=== PATIENT | female | born 1940 | race Caucasian/White ===

== ENCOUNTER 2019-12-26 14:10 | Inpatient (IN) | payer BC, MEDICARE, OTHER ==
[~2019-12-26] VITALS: Ht 165.1 cm; Wt 58.9 kg
[~2019-12-26 14:10] MED LIST: CARI350T PO; CLOP75TA35 PO; ESTR0.3T10 PO; LIDO700A5 TOP; LISI-222 PO; LOP25T PO; METH500T PO; ONDA4TAB6 PO
[2019-12-26 14:44] LABS: BASOPHILS # (AUTO) 0.1 X10'3 (0-0.2); BASOPHILS % (AUTO) 1.2 % (0-1); EOSINOPHILS # (AUTO) 0.1 X10'3 (0-0.9); EOSINOPHILS % (AUTO) 1.5 % (0-6); HEMATOCRIT 47.3 % (35.0-45.0); HEMOGLOBIN 15.8 g/dl (12.0-16.0); LYMPHOCYTES # (AUTO) 1.6 X10'3 (1.1-4.8); LYMPHOCYTES % (AUTO) 28.2 % (21-51); MEAN CORPUSCULAR HEMOGLOBIN 28.2 PG (27.0-31.0); MEAN CORPUSCULAR HGB CONC 33.4 g/dL (33.0-36.5); MEAN CORPUSCULAR VOLUME 84.2 FL (78-98); MEAN PLATELET VOLUME 8.9 FL (7.4-10.4); MONOCYTES # (AUTO) 0.5 X10'3 (0-0.9); MONOCYTES % (AUTO) 7.9 % (2-12); NEUTROPHILS # (AUTO) 3.5 X10'3 (1.8-7.7); NEUTROPHILS % (AUTO) 61.2 % (42-75); PLATELET COUNT 227 X10'3 (140-440); RED BLOOD COUNT 5.62 X10'6 (4.20-5.60); WHITE BLOOD COUNT 5.8 X10'3 (4.5-11.0)
[2019-12-26 15:08] LABS: ALANINE AMINOTRANSFERASE 11 U/L (12-78); ALBUMIN 3.8 G/DL (3.4-5.0); ALBUMIN/GLOBULIN RATIO 1.1 (1.1-1.5); ALKALINE PHOSPHATASE 111 IU/L (46-116); ANION GAP 6 (8-16); ASPARTATE AMINO TRANSFERASE 19 U/L (10-37); BILIRUBIN,TOTAL 0.6 MG/DL (0.1-1.0); BLOOD UREA NITROGEN 13 MG/DL (7-18); BUN/CREATININE RATIO 12.7 (6.6-38.0); CALCIUM 9.7 MG/DL (8.5-10.1); CHLORIDE 104 MMOL/L (99-107); CREATININE 1.02 MG/DL (0.40-0.90); GLUCOSE 96 MG/DL (70-104); SODIUM 140 MMOL/L (135-145); TOTAL CARBON DIOXIDE 29.8 MMOL/L (24-32); TOTAL PROTEIN 7.3 G/DL (6.4-8.2); eGFR 52 ML/MIN
[2019-12-26 15:11] LABS: ETHANOL < 0.010 GM/DL (0.0-0.010)
[2019-12-26 16:01] LABS: CLARITY,URINE SLIGHTLY CLOUDY (Clear); COLOR,URINE YELLOW (Yellow); GLUCOSE, URINE NEGATIVE (Neg); KETONES,URINE TRACE mg/dl (Neg); LEUKOCYTE ESTERASE ,URINE MODERATE (Neg); NITRITES, URINE POSITIVE (Neg); OCCULT BLOOD,URINE TRACE-INTACT (Neg); PROTEIN,URINE NEGATIVE (Neg); UROBILINOGEN,URINE 0.2 E.U/dL (0.2-1.0)
[2019-12-26 16:08] LABS: UA COLLECTION TYPE CLN CATCH MIDSTREAM
[2019-12-26 16:09] LABS: RBC,URINE 0-2 /HPF (0-2)
[2019-12-26 16:10] LABS: BACTERIA,URINE 1+ /HPF (Neg); MUCUS STRANDS FEW /LPF (Neg); SQUAMOUS EPITHELIAL CELL,UR MANY /LPF (FEW)
[2019-12-26 16:14] LABS: URINE AMPHETAMINE SCREEN NEGATIVE (Neg); URINE BARBITUATE SCREEN NEGATIVE (Neg); URINE BENZODIAZEPINES SCREEN NEGATIVE (Neg); URINE CANNABINOID SCREEN NEGATIVE (Neg); URINE COCAINE SCREEN NEGATIVE (Neg); URINE METHADONE SCREEN NEGATIVE (Neg); URINE OPIATE SCREEN NEGATIVE (Neg); URINE PHENCYCLIDINE SCREEN NEGATIVE (Neg)
--- NOTE | 2019-12-26 16:42 | NUR ---
Patient is currently sitting up in bed reading a book. RR are even and unlabored. No distress observed at this time. Patient was concerned about her purse belongings. Pt was reassured that her purse was in a safe place. Will continue to monitor.
[2019-12-26] MEDS ORDERED: NO HOME MEDS (17:13)
[2019-12-26] MEDS: nitrofuran/nitrofuran macrocrysal 100 MG capsule PO SCH ×2 (17:38→20:00)
--- NOTE | 2019-12-26 17:47 | NUR ---
Patient is standing by the bed to make her bed by folding blankets. Pt has a pleasnt behavior and denies any distress or symptoms. Respirations are even and unlabored. Will continue to monitor.
--- NOTE | 2019-12-26 19:15 | NUR ---
Pt is standing up at the nurses station visibly upset and raising her voice. "I shouldn't be here ! I can leave whenever I want. My is a copper miner!" Hand Sewer attempts to reorient pt, reminds her that she was brought in because her family called to have a welfare check on her and she was found at home unable to care for herself. Pt denies this and states people are making this up. Pt begins getting loud and tries to leave. Staff attempts to calm pt and try to get her to lay down. Pt refuses and keeps standing at the nursing station repeating herself.
--- NOTE | 2019-12-26 19:20 | NUR ---
Staff attempts to deescalate pt, offering her medication for anxiety which she refuses. Pt offered dinner tray, which she refuses. Pt keeps saying "I can leave when I want! you won't even give me my clothing!" Staff attempts to reorient pt multiple times with no success.
[2019-12-26] MEDS ORDERED: LORazepam 2 mg/ml vial IM ONE (19:25)
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
--- NOTE | 2019-12-26 20:15 | NUR ---
Pt trying to sit up in bed wit restraints on, still asking for scissors and saying, "I need to get up and walk out of here." Staff tried to comfort pt, get her to lay back and rest.
[2019-12-26] MEDS ORDERED: haloperidol lactate 5mg/ml inj IM ONE (20:25)
--- NOTE | 2019-12-26 20:25 | NUR ---
Face to face completed by Dr. Gray. Pt still trying to get up, Haldol 5mg IM ordered.
--- NOTE | 2019-12-26 20:33 | NUR ---
5 mg Haldol IM given with good effect. Pt began to rest and close her eyes.
--- NOTE | 2019-12-26 20:54 | NUR ---
RESTRAINTS REMOVED X4. PT RESTING ON BACK RR 16, 02 96%. VITALS WNL
--- NOTE | 2019-12-26 21:42 | NUR ---
Pt sleeping on her back RR 16, even, unlabored
--- NOTE | 2019-12-26 23:00 | NUR ---
Pt is sleeping soundly RR 14, no signs or symptoms of distress at this time
--- NOTE | 2019-12-27 00:54 | NUR ---
Pt remains asleep on her back, RR 16
--- NOTE | 2019-12-27 01:59 | NUR ---
Pt sleeping on back. Respirations unlabored. NAD
--- NOTE | 2019-12-27 03:51 | NUR ---
Pt still sleepinging soundly RR 14
--- NOTE | 2019-12-27 07:01 | NUR ---
Note xavier in ED - 12/27/19 at 1247 by KAM Assumed care of pt. Pt is asleep on her right side in no apparent distress. Respirations are even and unlabored.
--- NOTE | 2019-12-27 07:07 | NUR ---
Assumed care of pt. Pt is asleep on her back side in no apparent distress. Respirations are even and unlabored.
[2019-12-27] MEDS: nitrofuran/nitrofuran macrocrysal 100 MG capsule PO SCH ×4 (08:28→20:00)
--- NOTE | 2019-12-27 09:03 | NUR ---
Eduardo park in ED - 12/27/19 at 1247 by KAM Pt drank her ensure and took all meds as prescribed. She is cooperative and pleasant.
--- NOTE | 2019-12-27 09:07 | NUR ---
Pt up and eating breakfast. Took all meds aas prescribed. States she got a good nights sleep
--- NOTE | 2019-12-27 10:08 | NUR ---
Pt is with Gillian from . Pt taken off of mental health hold d/t symptoms of possible dementia.
--- NOTE | 2019-12-27 11:04 | NUR ---
Pt is asleep on her left side in no apparent distress. Respirations are even and unlabored.
--- NOTE | 2019-12-27 12:40 | NUR ---
Pt continues to sleep on right side.
--- NOTE | 2019-12-27 14:16 | NUR ---
Pt up and talking to this RN. Pt reoriented to place and time.
--- NOTE | 2019-12-27 14:57 | NUR ---
Pt sitting up in bed coloring
--- NOTE | 2019-12-27 15:59 | NUR ---
Stevevadim called from [place] stating she is pts adopted daughter. Says Pt , Severiano Porter is in the hospital here at [facility] for his hip. She says German is Pts grades 6 through 8 teacher. Pts daughter Joaquina lives in [place] and her son Ras is somewhere in [place]. Her sister Janie lives here in [place]. Edin does not have numbers for any of these people.
--- NOTE | 2019-12-27 17:22 | NUR ---
Pt sitting up in bed looking at a book.
--- NOTE | 2019-12-27 19:12 | NUR ---
The patient has been resting on her bed. She was pleasant when approached. She ate very little of her dinner and stated that she did not have much appetite. She did know how old she was. When asked the what the year was she stated, "I know its in the low 1999's. She knew she was in a hospital but she did not know why. When asked where she is living she stated, "Good question. My home is in [place], [place]" She denies phyiscal pain or other complaints.
--- NOTE | 2019-12-27 19:17 | NUR ---
Patient's grand daughter: Eir Abbott [phone]
--- NOTE | 2019-12-27 20:42 | NUR ---
The patient repeatedly refused to take her antibiotic.
--- NOTE | 2019-12-27 20:50 | NUR ---
The patient appears to be resting quietly on her bed.
--- NOTE | 2019-12-27 22:29 | NUR ---
The patient appears to be sleeping
--- NOTE | 2019-12-27 23:41 | NUR ---
The patient appears to be sleeping
--- NOTE | 2019-12-28 05:24 | NUR ---
The patient appeared to have slept well during the night. Was up a couple of times to use the restroom but then went right back to bed.
[2019-12-28] MEDS: nitrofuran/nitrofuran macrocrysal 100 MG capsule PO SCH ×2 (07:43→19:31)
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
--- NOTE | 2019-12-28 09:48 | NUR ---
BETHANY WELSH'S PHONE NUMBER IS [phone]
--- NOTE | 2019-12-28 09:56 | NUR ---
GEORGE LOCKE'S PHONE NUMBER IS [phone].
[2019-12-28] MEDS ORDERED: diphenhydrAMINE 50 mg/ml inj IM ONE (10:15)
[2019-12-28] MEDS ORDERED: LORazepam 2 mg/ml vial IM ONE ×2 (10:15→17:00)
--- NOTE | 2019-12-28 10:30 | NUR ---
pt agitated,swearing attempting to push past nursing staff to leave contacted er doc order taken for 1 mg ativan/25 mg benadryl im given right hip
--- NOTE | 2019-12-28 10:30 | NUR ---
pt agitated after talking to son on phone,insisting on leaving,attempting to push past nursing staff at exits, unable to re-orient or redirect,insisting kids are in the car outside. Security called repeatedly ER doc contacted, orders taken for 1 mg ativan,25 mg benadryl IM,given with fair relief .
--- NOTE | 2019-12-28 13:37 | NUR ---
No pt Ombudsmen on site currently, per EDID Kirill request to get 3rd constitution party oversight about getting pt's down from Ortho for a visit. Per Social Onel Cobian, the current process would be for the respective CRNs to work out implementation. However, she shared her view based on earlier interaction with today indicated he is not a good candidate for transporation @ this time d/t pain from hip surgery just when coughing.
[2019-12-28] MEDS ORDERED: ziprasidone 20mg capsule PO ONE (14:45)
--- NOTE | 2019-12-28 15:00 | NUR ---
pt cont agitated attempting to leave,x1 order obtained for 20 mg geodon po given,with brief calm period1-2 hours
--- NOTE | 2019-12-28 17:00 | NUR ---
DR LYNCH TO BEDSIDE TO EVALUATE PT, RECIEVED VERBAL ORDER FOR 2 MG ATIVAN IM ONCE NOW. DUE TO PT ANXIETY, AGITATION AND CONTINUES WANDERING AND GETTING LOST IN UNIT WELL CONFUSED TO WHERE SHE IS.
--- NOTE | 2019-12-28 17:15 | NUR ---
pt swearing roaming the unit,attempting to leave,security here repeatedly,pt medicated with 2 mg ativan im in right deltoid calming slowly after 45 minutes pt requiring 1:1 supervision majority of day
[2019-12-28] MEDS: ziprasidone 20mg capsule PO SCH (19:31)
--- NOTE | 2019-12-28 20:00 | NUR ---
The patient is resting on her bed awake but quiet. Encouraged po fluids. She took her evening medications.
--- NOTE | 2019-12-28 21:42 | NUR ---
The patient appears to be sleeping comfortably.
--- NOTE | 2019-12-28 23:11 | NUR ---
The patient appears to be sleeping
--- NOTE | 2019-12-29 01:15 | NUR ---
The patient appears to be sleeping
--- NOTE | 2019-12-29 03:05 | NUR ---
The patient up to the bathroom with the assistance of staff
--- NOTE | 2019-12-29 05:26 | NUR ---
The patient appears to be sleeping
--- NOTE | 2019-12-29 06:30 | NUR ---
pt is sleeping. report recieved.
--- NOTE | 2019-12-29 07:30 | NUR ---
pt is sleeping. no concerns at this time
[2019-12-29] MEDS: nitrofuran/nitrofuran macrocrysal 100 MG capsule PO SCH ×2 (09:20→19:28)
[2019-12-29] MEDS: ziprasidone 20mg capsule PO SCH ×2 (09:21→19:28)
--- NOTE | 2019-12-29 11:30 | NUR ---
pt is remaking her bed and changing the sheets
--- NOTE | 2019-12-29 13:00 | NUR ---
pt is resting in room
--- NOTE | 2019-12-29 15:06 | NUR ---
pt is resting in bed visiting with neighbor
--- NOTE | 2019-12-29 16:00 | NUR ---
pt spoke with son in law
--- NOTE | 2019-12-29 17:00 | NUR ---
pt resting in bed.
--- NOTE | 2019-12-29 20:01 | NUR ---
The patient is currently resting on her bed. She is very confused. She is oriented only to herself. She at times attempts to walk off the unit but is accepting redirection. She did take HS medications with applesauce
--- NOTE | 2019-12-29 21:37 | NUR ---
The patient appears to be asleep at this time.
--- NOTE | 2019-12-30 01:42 | NUR ---
The patient appears to be sleeping
--- NOTE | 2019-12-30 04:54 | NUR ---
The patient appears to be sleeping
--- NOTE | 2019-12-30 07:30 | NUR ---
assumed care from MIRELLA Cowart. pt laying in bed quietly.
--- NOTE | 2019-12-30 08:29 | NUR ---
pt standing by her bed folding her bedsheets on the bed. pt comes up to nursing station and asked if she needed to fold the sheets any certain way. RN answered no. breakfast at bedside but pt states she does not want to eat at this time. attempted to give pt her meds and pt stated she'd like to eat a little first.
[2019-12-30] MEDS: nitrofuran/nitrofuran macrocrysal 100 MG capsule PO SCH ×2 (08:46→19:12)
[2019-12-30] MEDS: ziprasidone 20mg capsule PO SCH ×2 (08:46→19:12)
--- NOTE | 2019-12-30 08:47 | NUR ---
pt sitting in chair by her bed eating her breakfast with her tray sitting on her lap. asked pt if she wanted to use her bedside table and pt stated she was fine. pt took her meds. pt states she takes one pill a day, RN explained she had 2 d/t abx. pt at first wouldn't take second pill and then changed her mind.
--- NOTE | 2019-12-30 10:00 | NUR ---
pt walking around her room and up to bathroom getting cleaned up. pt looking for her purse. first stated she wanted from underware from her purse. underware provided. then pt states she wanted nicknacks and food out of her purse. nursing staff assured her if she was hungry we would get her some food but we are unable to get to her purse at this time.
--- NOTE | 2019-12-30 10:50 | NUR ---
pt resting quietly in bed reading a magazine.
--- NOTE | 2019-12-30 11:20 | NUR ---
SENT PAGE TO [facility] TO VERIFY FUNDS AND IF FUNDS LOOK FOR PLACEMENT
--- NOTE | 2019-12-30 12:29 | NUR ---
LEFT MESSAGE WITH ELIZABETH PT DAUGHTER TO CALL BACK TO GET BANKING INFO TO ATTEMPT TO GET HOUSING CARE FOR PT UNTIL PT SPOUSE IS DISCHARGED FROM SNF, PT SPOUSE JUST WENT TO SNF TODAY AND WILL BE THERE APPROX 7 WEEKS.
[2019-12-30] MEDS ORDERED: LORazepam 1 MG tablet PO ONE ×2 (14:50→22:05)
--- NOTE | 2019-12-30 14:51 | NUR ---
pt continuously roaming around the unit, pleasant, and busy. curious about another pts behavior. up and down from bed to chair and walking around the unit. pleasantly antsy. obtained order for PO Ativan to help settle pt.
--- NOTE | 2019-12-30 15:04 | NUR ---
NURSE ALETHEA BOLDEN FROM [facility] STATES PT SPOUSE JUST ARRIVED YESTERDAY, SHE WILL CONTACT RUFUS VENEGAS WHO IS LISTED ON MR LOCKE CONTACT REGINALDO BUT HIS DAUGHTER AND SISTER IN LAW DOES NOT KNOW RUFUS VENEGAS, ALETHEA WILL TALKE WITH DR LOCKE AND CALL RUFUS VENEGAS AND THEN EITHER SHE WILL CALL ME BACK OR HAVE RUFUS VENEGAS CALL ME BACK., ALETHEA BOLDEN [facility] DIRECT PH# [phone]
[2019-12-30] MEDS ORDERED: diphenhydrAMINE 50 mg/ml inj IM ONE (15:20)
[2019-12-30] MEDS ORDERED: haloperidol lactate 5mg/ml inj IM ONE (15:20)
--- NOTE | 2019-12-30 15:34 | NUR ---
pt getting agitated, walking around, saying she wants to talk to her . order obtained for CONCHITA Garay and Inocencio for pt. security and tech at bedside.
--- NOTE | 2019-12-30 16:05 | NUR ---
tech sitting with pt at bedside to help keep pt in bed and calm sicne pt gets up and walks around the unit bothering other pts. pt is remaining calm at the moment.
--- NOTE | 2019-12-30 16:47 | NUR ---
pt confused and starting to become combative, kicking and biting. security at bedside. soft wrist restraints applied.
--- NOTE | 2019-12-30 18:34 | NUR ---
PT WONDERING AROUND. SPEAKING WITH STAFF, CAN BE REDIRECTED AT TIMES BUT WILL NOT STAY IN ONE PLACE FOR TOO LONG.
--- NOTE | 2019-12-30 20:30 | NUR ---
pt is confused and trying to wonder around aimlessly. she states she has to get to the "two kids" sitter at bedside. pt continues to swing her legs over the side rails.
--- NOTE | 2019-12-30 22:21 | NUR ---
PT WAS AGITATED AND WAS NOT FOLLOWING COMMANDS. SHE CONTINUED TO SWING HER LEGS OVER THE BED RAIL TO LEAVE. DR PAIGE NOTIFIED. 1MG PO ATIVAN ORDERED. SHORTLY AFTER NOTIFYING DR. PAIGE OF PT'S BEHAVIOR, PT FELL ASLEEP.
--- NOTE | 2019-12-30 23:57 | NUR ---
PT SLEEPING AT THIS TIME. SITTER AT BEDSIDE.
--- NOTE | 2019-12-31 05:36 | NUR ---
PT SLEPT WELL. SHE IS SLEEPING IN BED. SITTER AT BEDSIDE.
--- NOTE | 2019-12-31 05:57 | NUR ---
PATIENT REFUSING VITAL SIGNS.
--- NOTE | 2019-12-31 06:26 | NUR ---
RECEIVED REPORT FROM SYEDA BARRERA, PT IS SLEEPING AT THIS TIME, NO S/S OF DISTRESS, DISCOMFORT OR AGITATION, RESPIRATIONS SPONTANEOUS, EVEN AND UNLABORED, PT IN LINE OF SITE OF NURSES STATION, WILL CONTINUE TO MONITOR.
--- NOTE | 2019-12-31 07:03 | NUR ---
DR LYNCH AT BEDSIDE DISCUSSED PT STATUS, RECEIVED VERBAL ORDER TO INCREASE GEODON TO 40MG BID, UPDATED NEW ORDER AND STOPPED PREVIOUS ORDER.
--- NOTE | 2019-12-31 08:44 | NUR ---
PT IS SLEEPING, RESPIRATIONS SPONTANEOUS, EVEN AND UNLABORED, NO S/S OF DISTRESS, DISCOMFORT OR AGITATION, PT IN LINE OF SITE OF NURSES STATION, WILL CONTINUE TO MONITOR
--- NOTE | 2019-12-31 10:06 | NUR ---
TWO APS WORKERS AT BEDSIDE NOW
--- NOTE | 2019-12-31 10:18 | NUR ---
NATHALIA FITZGERALD AND ELYSSA HEAD WITH APS FINISHED INTERVIEWING PT, GAVE SOME BRIEF HISTORY AND INFORMATION FOR THEM TO FOLLOW UP WITH WHEN REVIEWING PT CASE.
[2019-12-31] MEDS: ziprasidone 20mg capsule PO SCH ×2 (10:24→20:00)
[2019-12-31] MEDS: nitrofuran/nitrofuran macrocrysal 100 MG capsule PO SCH (10:24)
--- NOTE | 2019-12-31 10:27 | NUR ---
MEDICATED PT WITH ABX AND GEODON PER ORDERS, PT SITTING UP EATING BREAKFAST, JESSE ED SITTER ASSISTING PT WITH EATING
--- NOTE | 2019-12-31 11:04 | NUR ---
PT AMBULATED TO BATHROOM WITH STANDBY ASSIST BY JESSE, PT IS NOW BACK IN BED FOLDING HER BLANKETS ON HER BED, PT STANDS AND SITS INTERMITTENTLY WHILE FOLDING BLANKETS
--- NOTE | 2019-12-31 12:40 | NUR ---
PT IS SLEEPING, RESPIRATIONS SPONTANEOUS, EVEN AND UNLABORED, NO S/S OF DISTRESS DISCOMFORT OR AGITATION, PT IN LINE OF SITE OF NURSES STATION, WILL CONTINUE TO MONITOR
--- NOTE | 2019-12-31 14:59 | NUR ---
PT WALKING TOWARDS BACK OF ROOM WANTING TO HANG UP HER SWEATSHIRT IN THE CLOSET. PT REDIRECTED TO HER BED GIVEN A WARM BLANKET AND PILLOW FOR A NAP. PT LYING IN BED QUIETLY NOW.
--- NOTE | 2019-12-31 15:01 | NUR ---
PT IN BED RESTING
--- NOTE | 2019-12-31 17:09 | NUR ---
LEONEL UP TO THE BATHROOM. STEADY GAIT.
--- NOTE | 2019-12-31 18:57 | NUR ---
Patilent is sitting up in bed eating her dinner. Patient is oriented to person. Dementia is reported present. Patient is not on a mental health hold at this time. Patient reported to have had some agitatation earlier. Patient presents as calm at this time.
--- NOTE | 2019-12-31 20:45 | NUR ---
Patient is resting in a mid fowlers position in bed. She is awake with her hand over her face. Patient has no complaints at this time.
--- NOTE | 2019-12-31 21:30 | NUR ---
Patient is sleeping quietly, low fowlers position.
--- NOTE | 2019-12-31 22:15 | NUR ---
Eduardo park in [facility] - 01/01/20 at 0545 by SONALI Patient is sleeping quietly.
--- NOTE | 2019-12-31 23:22 | NUR ---
Patient is sleeping in a low fowlers position. She self repositions.
--- NOTE | 2020-01-01 01:16 | NUR ---
Patient awakens and ambulates to the nursing station. Patient is disoriented. Patient is reoriented to person, place, and time. The patient is reassured that she is safe. Patient is helped back to bed. New blankets given. The patient is amazed it is after one am in the night. Patient returns to sleep.
--- NOTE | 2020-01-01 03:07 | NUR ---
Patient is sleeping quietly on her left side.
--- NOTE | 2020-01-01 04:00 | NUR ---
Patient is sleeping on her right side in bed.
--- NOTE | 2020-01-01 05:38 | NUR ---
Patient sleeping quietly.
--- NOTE | 2020-01-01 05:59 | NUR ---
Patient is up to visit this jingle writer at the nursing station. Patient has some limited understanding that she is confussed. Patient is advised that it is nearly 0600 in the morning. She is surprised. She agrees to return to bed to get some sleep.
[2020-01-01] MEDS: ziprasidone 20mg capsule PO SCH ×2 (09:09→20:12)
--- NOTE | 2020-01-01 09:25 | NUR ---
assumed care of pt she is supine in bed, eyes closed, regular breathing observed, pt is in eyesite of staff, no agitation observed
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
--- NOTE | 2020-01-01 11:26 | NUR ---
pt is supine in bed, eyes closed, regular breathing observed, no agitation, will cont to monitor
--- NOTE | 2020-01-01 12:29 | NUR ---
pt is supine in bed eyes closed, regular breathing present, calm, no s/s of agitation observed
--- NOTE | 2020-01-01 13:22 | NUR ---
pt is sitting up in bed reading, no s/s of agitation observed
--- NOTE | 2020-01-01 14:23 | NUR ---
pt is up wandering and concerned about her children and her
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
--- NOTE | 2020-01-01 16:24 | NUR ---
PT IS UP AND DOWN OOB TO TALK TO NEIGHBOR, CALM
--- NOTE | 2020-01-01 19:10 | NUR ---
Patient ambulates to neighboring beds attempting to visit with other patients. Patients baseline is confusion. She is oriented to person only. Patient is polite. No hold in place. Dx is dementia. This patient eats her dinner. Patient provided clean scrubs. Patient redirected to bed.
--- NOTE | 2020-01-01 20:30 | NUR ---
Patient is medication compliant. She is sleeping now. Patient self repositions.
--- NOTE | 2020-01-01 22:05 | NUR ---
Patient remains sleeping, she self repositions in bed.
--- NOTE | 2020-01-01 23:33 | NUR ---
Patient is sleeping quietly on her right side.
--- NOTE | 2020-01-02 01:00 | NUR ---
Patient remains sleeping quietly.
--- NOTE | 2020-01-02 03:28 | NUR ---
Patient is sleeping quietly.
--- NOTE | 2020-01-02 04:53 | NUR ---
Patient is sleeping on her left side, no distress noted.
--- NOTE | 2020-01-02 07:06 | NUR ---
PT SLEEPING QUIETLY.
[2020-01-02] MEDS: ziprasidone 20mg capsule PO SCH ×2 (07:28→19:03)
--- NOTE | 2020-01-02 08:42 | NUR ---
PT SITTING UP AT BEDSIDE EATING BREAKFAST. ATE 50%
--- NOTE | 2020-01-02 09:34 | NUR ---
PT SLEEPING QUIETLY
--- NOTE | 2020-01-02 10:44 | NUR ---
PT AWAKE VISITING NURSES AT THE DESK, AND TO THE BR, PLEASANT BEHAVIOR.
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
--- NOTE | 2020-01-02 18:30 | NUR ---
PT is sitting up in bed or wandering around. Pt is difficult to redirect and does not agree with sitting in her bed.
--- NOTE | 2020-01-02 20:30 | NUR ---
Pt stands next to her bed and folds her blankets repeatedly. She tries to wander, is not easily directed but does go back to sit on her bed
--- NOTE | 2020-01-02 23:09 | NUR ---
Pt was medication compliant with CHUCKIE bass. She is currently sleeping on R side RR WNL
--- NOTE | 2020-01-03 01:00 | NUR ---
Pt asleep on L side, RR WNL
--- NOTE | 2020-01-03 03:00 | NUR ---
Pt got up to use the restroom then returned to bed.
--- NOTE | 2020-01-03 05:44 | NUR ---
Pt is awake and making her bed, she folds her sheets multiple times.
[2020-01-03] MEDS: ziprasidone 20mg capsule PO SCH ×2 (08:05→20:55)
[2020-01-03] MEDS: LORazepam 2 mg/ml vial IM PRN ×2 (09:33→15:00)
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
--- NOTE | 2020-01-03 21:04 | NUR ---
Pt continues to enter other patient's areas. Security at bedside. Staff assisting with redirection.
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
[2020-01-03] MEDS ORDERED: haloperidol lactate 5mg/ml inj IM ONE (21:20)
--- NOTE | 2020-01-03 22:00 | NUR ---
Pt resting quietly, respirations normal, no s/s of distress.
--- NOTE | 2020-01-03 23:00 | NUR ---
Pt resting quietly, respirations normal, no s/s of distress.
--- NOTE | 2020-01-04 | NUR ---
Pt resting quietly, respirations normal, no s/s of distress.
[2020-01-04] MEDS ORDERED: ziprasidone 20mg capsule PO ONE (01:00)
--- NOTE | 2020-01-04 01:00 | NUR ---
Pt resting quietly, respirations normal, no s/s of distress.
--- NOTE | 2020-01-04 02:00 | NUR ---
Pt resting quietly, respirations normal, no s/s of distress.
--- NOTE | 2020-01-04 03:08 | NUR ---
Pt resting quietly, respirations normal, no s/s of distress.
--- NOTE | 2020-01-04 04:00 | NUR ---
Pt resting quietly, respirations normal, no s/s of distress.
--- NOTE | 2020-01-04 05:38 | NUR ---
Pt resting quietly, respirations normal, no s/s of distress.
[2020-01-04] MEDS: ziprasidone 20mg capsule PO SCH ×2 (08:00→19:15)
[2020-01-04] MEDS ORDERED: acetaminophen 325mg tablet PO PRN (17:10)
[2020-01-04] MEDS ORDERED: diphenhydrAMINE 25mg capsule PO PRN (17:10)
[2020-01-04] MEDS ORDERED: morphine 2 MG/ML inj. syringe IV PRN ×2 (17:10)
[2020-01-04] MEDS ORDERED: ondansetron/PF 4mg/2ml inj IV PRN (17:10)
[2020-01-04] MEDS ORDERED: mag hydrox/Alum hydrox/simeth 30ml oral suspension PO PRN (17:10)
--- NOTE | 2020-01-04 19:33 | NUR ---
Patient in room ORTHO 4009. I have received report from Jeniffer VU in the ED overflow and had the opportunity to ask questions and assume patient care. Pt arrived on the unit via wheelchair. All pt belongings were places in the bedside drawers. Pt was able to ambulate from the wheelchair into bed. Pt is on R/A, has no signs of distress. Will continue to monitor.
[2020-01-04 20:20] VITALS: BP 153/70
[2020-01-04 22:00] VITALS: BP 157/65
[2020-01-05 06:00] VITALS: BP 133/68
--- NOTE | 2020-01-05 06:24 | NUR ---
Problems reprioritized. Patient report given, questions answered & plan of care reviewed with Renetta VU.
[2020-01-05] MEDS: ziprasidone 20mg capsule PO SCH ×2 (08:45→19:17)
[2020-01-05 10:00] VITALS: BP 128/57
[2020-01-05 18:00] VITALS: BP 135/74
--- NOTE | 2020-01-05 18:32 | NUR ---
Report to Ivet Cooney RN
--- NOTE | 2020-01-05 18:35 | NUR ---
Patient in room ORTHO 4009. I have received report from LORE VU and had the opportunity to ask questions and assume patient care.
[2020-01-05 22:00] VITALS: BP 103/82
[2020-01-06 05:59] VITALS: BP 148/63
--- NOTE | 2020-01-06 06:27 | NUR ---
Problems reprioritized. Patient report given, questions answered & plan of care reviewed with ZORAIDA VU.
--- NOTE | 2020-01-06 06:32 | NUR ---
Patient in room ORTHO 4009C. I have received report from MIRELLA TRIANA and had the opportunity to ask questions and assume patient care.
[2020-01-06] MEDS: ziprasidone 20mg capsule PO SCH ×2 (08:35→20:34)
[2020-01-06 10:00] VITALS: BP 151/81
[2020-01-06 18:00] VITALS: BP 125/84
--- NOTE | 2020-01-06 18:14 | NUR ---
Problems reprioritized. Patient report given, questions answered & plan of care reviewed with MIRELLA RAMAN.
[2020-01-06 22:00] VITALS: BP 179/79
[2020-01-07 06:00] VITALS: BP 166/100
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
[2020-01-07] MEDS: ziprasidone 20mg capsule PO SCH ×3 (08:00→20:00)
[2020-01-07 10:00] VITALS: BP 92/61
[2020-01-07 18:00] VITALS: BP 97/64
--- NOTE | 2020-01-07 18:40 | NUR ---
Gave report to Kaitlin VU
[2020-01-08] MEDS: ziprasidone 20mg capsule PO SCH ×2 (08:29→19:16)
[2020-01-08 10:12] VITALS: BP 164/72
--- NOTE | 2020-01-08 14:16 | NUR ---
Initial: Pt admit gravely disabled due to advanced dementia. Pt previously in ED on 5150 hold where pt was eating well, averaging 50-75% PO intake with some 100% PO intake on regular diet meeting nutrient needs. Since being admitted pt with 0-25% PO intake on regular diet not meeting nutrient needs. Pt confused and A/O x 1, likely impacting PO intake. LBM 01/01 however per physical assessment unknown when LBM was. Pt with PRN MoM however no documentation of pt receiving it. D/w dietary to send prunes and prune juice with dinner tonight to assist with bowel regularity and hopefully improve PO intake. Will continue to follow closely and monitor need for further nutrition intervention. Recommendations: 1) Continue regular diet 2) Encourage PO intake; monitor need for ONS 3) Routine bowel care 4) Wt per rx Addendum: 01/08/20 at [address] Amended: Links added.
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
[2020-01-08 17:00] VITALS: BP 124/90
--- NOTE | 2020-01-08 18:25 | NUR ---
Patient in room ORTHO 4009. I have received report from Dede VU and had the opportunity to ask questions and assume patient care.
[2020-01-08 22:00] VITALS: BP 99/57
--- NOTE | 2020-01-09 06:17 | NUR ---
Problems reprioritized. Patient report given, questions answered & plan of care reviewed with Luis A VU.
--- NOTE | 2020-01-09 06:34 | NUR ---
Patient in room ORTHO 4009. I have received report from Namita and had the opportunity to ask questions and assume patient care.
[2020-01-09] MEDS: ziprasidone 20mg capsule PO SCH ×2 (07:49→19:08)
[2020-01-09] MEDS: acetaminophen 325mg tablet PO PRN (09:51)
[2020-01-09 10:00] VITALS: BP 151/67
[2020-01-09 17:00] VITALS: BP 165/73
--- NOTE | 2020-01-09 18:22 | NUR ---
Problems reprioritized. Patient report given, questions answered & plan of care reviewed with Carlo.
--- NOTE | 2020-01-09 18:29 | NUR ---
Patient in room ORTHO 4009. I have received report from Luis A VU and had the opportunity to ask questions and assume patient care.
[2020-01-09 20:00] VITALS: BP 134/55
[2020-01-09 22:00] VITALS: BP 134/55
[2020-01-10 06:00] VITALS: BP 151/63
--- NOTE | 2020-01-10 06:16 | NUR ---
Problems reprioritized. Patient report given, questions answered & plan of care reviewed with Gisela VU.
--- NOTE | 2020-01-10 06:23 | NUR ---
Patient in room ORTHO 4009. I have received report from MIRELLA Jefferson and had the opportunity to ask questions and assume patient care.
[2020-01-10] MEDS: ziprasidone 20mg capsule PO SCH ×2 (07:22→19:36)
[2020-01-10 08:07] VITALS: BP 151/63
[2020-01-10 10:05] VITALS: BP 80/55
--- NOTE | 2020-01-10 13:55 | NUR ---
Problems reprioritized. Patient report given, questions answered & plan of care reviewed with MIRELLA Spencer and MIRELLA العراقي.
--- NOTE | 2020-01-10 14:02 | NUR ---
Rcvd report from Gisela VU
[2020-01-10] MEDS ORDERED: LORazepam 2 mg/ml vial IM ONE (16:20)
--- NOTE | 2020-01-10 16:21 | NUR ---
sent a page to hospitalist about pt being agitated and nursing staff was requesting something to help cease her agitation, ordered a one time IM dose of ativan, continue to educate and monitor pt
[2020-01-10 18:00] VITALS: BP 175/87
--- NOTE | 2020-01-10 18:19 | NUR ---
Patient in room ORTHO 4009. I have received report from cam العراقي and had the opportunity to ask questions and assume patient care.
[2020-01-10 20:00] VITALS: BP 158/71
[2020-01-10 21:48] VITALS: BP 158/71
[2020-01-11 06:00] VITALS: BP 144/69
--- NOTE | 2020-01-11 06:22 | NUR ---
Problems reprioritized. Patient report given, questions answered & plan of care reviewed with cam Jackson.
[2020-01-11] MEDS: ziprasidone 20mg capsule PO SCH ×2 (08:59→19:43)
[2020-01-11 10:00] VITALS: BP 148/68
--- NOTE | 2020-01-11 16:03 | NUR ---
Reassessment: Pt PO 25-50% avg regular diet partially meeting needs. LBM 01/05 and ALOC AOx1 w/ dementia likely effecting PO. Ensure Enlive TIDWM added for additional protein needs w/ COPD Exacerbation per MD note. NANCIE d/w RN regarding MoM PRN if pt truly constipated since goes to bathroom independently per RN. Will continue to monitor. Recommendations: 1) Continue regular diet 2) Encourage PO intake; ensure enlive TIDWM 3) Routine bowel care 4) Wt per rx Addendum: 01/11/20 at [address] Amended: Links added.
[2020-01-11 18:00] VITALS: BP 150/60
--- NOTE | 2020-01-11 18:19 | NUR ---
Report to Laura VU
--- NOTE | 2020-01-11 18:24 | NUR ---
Patient in room ORTHO 4009. I have received report from cam Jackson and had the opportunity to ask questions and assume patient care.
[2020-01-11] MEDS: magnesium hydroxide 30ml (MOM) UD suspension PO PRN (19:43)
[2020-01-11 20:00] VITALS: BP 158/76
[2020-01-11 22:00] VITALS: BP 158/76
--- NOTE | 2020-01-12 06:21 | NUR ---
Problems reprioritized. Patient report given, questions answered & plan of care reviewed with cam Pedersen.
[2020-01-12 07:06] VITALS: BP 140/55
[2020-01-12] MEDS: ziprasidone 20mg capsule PO SCH ×2 (07:25→19:21)
[2020-01-12 10:00] VITALS: BP_SYST 125; BP_SYST 146; BP_DIAS 58; BP_DIAS 69
--- NOTE | 2020-01-12 10:23 | NUR ---
Problems reprioritized. Patient report given, questions answered & plan of care reviewed with Bonnie VU.
[2020-01-12] MEDS: lactose-reduced food (Ensure Enlive) - 237ml bottle PO SCH ×2 (13:10→18:00)
[2020-01-12 18:00] VITALS: BP 161/79
[2020-01-12] MEDS: magnesium hydroxide 30ml (MOM) UD suspension PO PRN (19:21)
[2020-01-12 20:00] VITALS: BP 160/67
[2020-01-12 22:00] VITALS: BP 160/67
--- NOTE | 2020-01-13 06:24 | NUR ---
Patient in room ORTHO 4009. I have received report from Setnhil VU and had the opportunity to ask questions and assume patient care.
--- NOTE | 2020-01-13 06:28 | NUR ---
Problems reprioritized. Patient report given, questions answered & plan of care reviewed with MIRELLA CRAWFORD.
--- NOTE | 2020-01-13 06:31 | NUR ---
Refused 0600 vitals.
[2020-01-13] MEDS: ziprasidone 20mg capsule PO SCH ×2 (07:24→19:42)
[2020-01-13] MEDS: lactose-reduced food (Ensure Enlive) - 237ml bottle PO SCH ×3 (08:00→18:04)
[2020-01-13 09:30] VITALS: BP 135/65
[2020-01-13 10:00] VITALS: BP 112/49
[2020-01-13 15:45] VITALS: BP_SYST 114; BP_SYST 125; BP_SYST 129; BP_DIAS 70; BP_DIAS 75; BP_DIAS 76
[2020-01-13 18:00] VITALS: BP 96/77
--- NOTE | 2020-01-13 18:00 | NUR ---
Patient in room ORTHO 4009. I have received report from MIRELLA Gunn and had the opportunity to ask questions and assume patient care.
--- NOTE | 2020-01-13 18:20 | NUR ---
Problems reprioritized. Patient report given, questions answered & plan of care reviewed with
[2020-01-14 06:00] VITALS: BP 97/50
--- NOTE | 2020-01-14 06:00 | NUR ---
Problems reprioritized. Patient report given, questions answered & plan of care reviewed with MIRELLA Gunn.
--- NOTE | 2020-01-14 06:09 | NUR ---
Patient in room ORTHO 4009. I have received report from [facility] and had the opportunity to ask questions and assume patient care.
[2020-01-14] MEDS: ziprasidone 20mg capsule PO SCH ×2 (07:33→19:19)
[2020-01-14] MEDS: lactose-reduced food (Ensure Enlive) - 237ml bottle PO SCH ×3 (08:13→18:54)
[2020-01-14 10:00] VITALS: BP 98/78
--- NOTE | 2020-01-14 12:20 | NUR ---
Reassessment: Pt PO meals and ONS continue to fluctuate likely secondary to dementia DX. Pt PO ensures 0-75% w/ a refusal and PO meals decreased to 50% avg from mostly 75% avg prior meals. Overall pt still likely meeting needs given wt. RN reports pt needs encouragement at meal times but can self feed and does not require feeder. Per MD note; no acute medical issues at this time. LBM 01/10. Will continue to monitor. Recommendations: 1) Continue regular diet 2) Encourage PO intake; ensure enlive TIDWM 3) Routine bowel care 4) Wt per rx Addendum: 01/14/20 at [address] Amended: Links added.
[2020-01-14 14:05] VITALS: BP_SYST 120; BP_SYST 125; BP_SYST 126; BP_DIAS 55; BP_DIAS 60
[2020-01-14] MEDS: acetaminophen 325mg tablet PO PRN (16:35)
[2020-01-14 18:00] VITALS: BP 190/94
--- NOTE | 2020-01-14 18:26 | NUR ---
Problems reprioritized. Patient report given, questions answered & plan of care reviewed with Marino.
--- NOTE | 2020-01-14 18:30 | NUR ---
Patient in room ORTHO 4009. I have received report from Luis A VU and had the opportunity to ask questions and assume patient care.
[2020-01-14 19:00] VITALS: BP 98/62
[2020-01-14 22:00] VITALS: BP 104/66
--- NOTE | 2020-01-15 06:00 | NUR ---
Patient refused vitals. Addendum: 01/15/20 at 0643 by Alice Cullen RN Amended: Links added.
--- NOTE | 2020-01-15 06:17 | NUR ---
Problems reprioritized. Patient report given, questions answered & plan of care reviewed with Alice VU.
[2020-01-15] MEDS: lactose-reduced food (Ensure Enlive) - 237ml bottle PO SCH ×3 (08:07→18:00)
[2020-01-15] MEDS: ziprasidone 20mg capsule PO SCH ×2 (08:09→19:20)
[2020-01-15 09:41] VITALS: BP 135/63
[2020-01-15] MEDS: acetaminophen 325mg tablet PO PRN (12:51)
[2020-01-15 18:00] VITALS: BP 167/76
--- NOTE | 2020-01-15 18:22 | NUR ---
Problems reprioritized. Patient report given, questions answered & plan of care reviewed with Terri VU.
--- NOTE | 2020-01-15 18:27 | NUR ---
Patient in room ORTHO 4009. I have received report from Alice VU and had the opportunity to ask questions and assume patient care.
[2020-01-16 06:00] VITALS: BP 147/67
--- NOTE | 2020-01-16 06:16 | NUR ---
Problems reprioritized. Patient report given, questions answered & plan of care reviewed with Alice VU.
[2020-01-16] MEDS: ziprasidone 20mg capsule PO SCH ×2 (07:58→19:43)
[2020-01-16] MEDS: lactose-reduced food (Ensure Enlive) - 237ml bottle PO SCH ×3 (08:03→18:00)
[2020-01-16 09:33] VITALS: BP 136/60
[2020-01-16 18:00] VITALS: BP 133/66
--- NOTE | 2020-01-16 18:11 | NUR ---
Problems reprioritized. Patient report given, questions answered & plan of care reviewed with Terri VU.
--- NOTE | 2020-01-16 18:14 | NUR ---
Patient in room ORTHO 4009. I have received report from Alice VU and had the opportunity to ask questions and assume patient care.
[2020-01-16 22:00] VITALS: BP 145/69
--- NOTE | 2020-01-17 06:12 | NUR ---
Problems reprioritized. Patient report given, questions answered & plan of care reviewed with Kathy VU.
--- NOTE | 2020-01-17 06:45 | NUR ---
Received report from Terri VU
[2020-01-17] MEDS: ziprasidone 20mg capsule PO SCH ×2 (08:08→19:12)
[2020-01-17] MEDS: lactose-reduced food (Ensure Enlive) - 237ml bottle PO SCH ×3 (08:27→18:00)
[2020-01-17 08:41] LABS: BASOPHILS # (AUTO) 0.1 X10'3 (0-0.2); BASOPHILS % (AUTO) 1.4 % (0-1); EOSINOPHILS # (AUTO) 0.2 X10'3 (0-0.9); EOSINOPHILS % (AUTO) 3.6 % (0-6); HEMATOCRIT 47.7 % (35.0-45.0); HEMOGLOBIN 15.7 g/dl (12.0-16.0); LYMPHOCYTES # (AUTO) 1.7 X10'3 (1.1-4.8); LYMPHOCYTES % (AUTO) 30.4 % (21-51); MEAN CORPUSCULAR HEMOGLOBIN 28.3 PG (27.0-31.0); MEAN CORPUSCULAR HGB CONC 32.9 g/dL (33.0-36.5); MEAN CORPUSCULAR VOLUME 86.2 FL (78-98); MEAN PLATELET VOLUME 9.6 FL (7.4-10.4); MONOCYTES # (AUTO) 0.6 X10'3 (0-0.9); MONOCYTES % (AUTO) 9.8 % (2-12); NEUTROPHILS # (AUTO) 3.2 X10'3 (1.8-7.7); NEUTROPHILS % (AUTO) 54.8 % (42-75); PLATELET COUNT 234 X10'3 (140-440); RED BLOOD COUNT 5.54 X10'6 (4.20-5.60); RED CELL DISTRIBUTION WIDTH 15.9 % (11.5-14.5); WHITE BLOOD COUNT 5.8 X10'3 (4.5-11.0)
[2020-01-17 08:54] LABS: ALANINE AMINOTRANSFERASE 11 U/L (12-78); ALBUMIN 3.8 G/DL (3.4-5.0); ALBUMIN/GLOBULIN RATIO 1.2 (1.1-1.5); ALKALINE PHOSPHATASE 78 IU/L (46-116); ANION GAP 7 (8-16); ASPARTATE AMINO TRANSFERASE 19 U/L (10-37); BILIRUBIN,TOTAL 0.5 MG/DL (0.1-1.0); BLOOD UREA NITROGEN 17 MG/DL (7-18); BUN/CREATININE RATIO 15.2 (6.6-38.0); CHLORIDE 107 MMOL/L (99-107); CREATININE 1.12 MG/DL (0.40-0.90); GLUCOSE 101 MG/DL (70-104); POTASSIUM 3.9 MMOL/L (3.5-5.1); SODIUM 141 MMOL/L (135-145); TOTAL CARBON DIOXIDE 26.7 MMOL/L (24-32); TOTAL PROTEIN 7.1 G/DL (6.4-8.2); eGFR 47 ML/MIN
[2020-01-17 10:00] VITALS: BP 138/64
[2020-01-17 18:00] VITALS: BP 145/83
[2020-01-17 22:00] VITALS: BP 137/57
[2020-01-18 06:00] VITALS: BP 142/68
--- NOTE | 2020-01-18 06:22 | NUR ---
REPORT GIVEN TO MIRELLA TORREZ.
[2020-01-18] MEDS: ziprasidone 20mg capsule PO SCH ×2 (08:00→20:20)
[2020-01-18] MEDS: lactose-reduced food (Ensure Enlive) - 237ml bottle PO SCH ×3 (08:01→18:42)
[2020-01-18 10:00] VITALS: BP 90/48
[2020-01-18 16:29] VITALS: BP 119/69
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
--- NOTE | 2020-01-18 18:10 | NUR ---
Received patient report from MIRELLA Jackson. Assumed patient care.
[2020-01-18 22:00] VITALS: BP 118/63
--- NOTE | 2020-01-19 06:18 | NUR ---
Patient report given, questions answered and plan of care reviewed with MIRELLA Jackson.
[2020-01-19] MEDS: ziprasidone 20mg capsule PO SCH ×2 (07:26→19:23)
[2020-01-19] MEDS: lactose-reduced food (Ensure Enlive) - 237ml bottle PO SCH ×3 (08:10→18:42)
[2020-01-19 10:00] VITALS: BP 133/55
--- NOTE | 2020-01-19 11:22 | NUR ---
Reassessment: Pt PO continues to fluctuate 25-50% avg regular diet w/ refusals. ONS PO increased to 75-100% past 5 meals improving. PO likely r/t ALOC. Receiving encouragement w/ PO and still likely meeting protein/kcal needs given wt and improved ONS PO. LBM 01/15. Will continue to monitor. Recommendations: 1) Continue regular diet 2) Encourage PO intake; ensure enlive TIDWM 3) Routine bowel care 4) Wt per rx Addendum: 01/19/20 at [address] Amended: Links added.
[2020-01-19 18:00] VITALS: BP 121/52
--- NOTE | 2020-01-19 18:10 | NUR ---
Received report from MIRELLA Jackson. Assumed patient care.
--- NOTE | 2020-01-19 18:36 | NUR ---
Report to Melissa Fleming RN
[2020-01-19 22:00] VITALS: BP 147/62
[2020-01-20 06:00] VITALS: BP 161/68
--- NOTE | 2020-01-20 06:15 | NUR ---
Patient in room ORTHO 4009. I have received report from Callie and had the opportunity to ask questions and assume patient care.
--- NOTE | 2020-01-20 06:20 | NUR ---
Patient report given, questions answered and plan of care reviewed with MIRELLA Jenkins.
[2020-01-20] MEDS: lactose-reduced food (Ensure Enlive) - 237ml bottle PO SCH ×3 (08:00→18:02)
[2020-01-20] MEDS: ziprasidone 20mg capsule PO SCH ×2 (09:19→19:33)
[2020-01-20 10:00] VITALS: BP 99/58
[2020-01-20 18:00] VITALS: BP 96/58
--- NOTE | 2020-01-20 18:05 | NUR ---
Problems reprioritized. Patient report given, questions answered & plan of care reviewed with Jessica.
[2020-01-21 06:00] VITALS: BP 108/53
--- NOTE | 2020-01-21 06:00 | NUR ---
Patient in room ORTHO 4009. I have received report from Jessica VU and had the opportunity to ask questions and assume patient care.
[2020-01-21] MEDS: ziprasidone 20mg capsule PO SCH ×2 (08:12→19:59)
[2020-01-21] MEDS: lactose-reduced food (Ensure Enlive) - 237ml bottle PO SCH ×3 (08:13→18:59)
[2020-01-21 10:00] VITALS: BP 113/62
[2020-01-21 18:00] VITALS: BP 122/69
--- NOTE | 2020-01-21 18:21 | NUR ---
Problems reprioritized. Patient report given, questions answered & plan of care reviewed with Denise VU.
--- NOTE | 2020-01-21 18:25 | NUR ---
Patient in room ORTHO 4009. I have received report from Namita VU and had the opportunity to ask questions and assume patient care.
--- NOTE | 2020-01-21 22:00 | NUR ---
Patient refused 2200 vitals
[2020-01-22 06:00] VITALS: BP 171/63
--- NOTE | 2020-01-22 06:14 | NUR ---
Problems reprioritized. Patient report given, questions answered & plan of care reviewed with Namita VU.
--- NOTE | 2020-01-22 06:25 | NUR ---
Patient in room ORTHO 4009. I have received report from Denise VU and had the opportunity to ask questions and assume patient care.
[2020-01-22] MEDS: lactose-reduced food (Ensure Enlive) - 237ml bottle PO SCH ×3 (07:42→18:00)
[2020-01-22] MEDS: ziprasidone 20mg capsule PO SCH ×2 (07:43→19:41)
[2020-01-22 09:42] VITALS: BP 111/59
[2020-01-22 17:00] VITALS: BP 117/67
--- NOTE | 2020-01-22 18:18 | NUR ---
Problems reprioritized. Patient report given, questions answered & plan of care reviewed with Yolanda VU and Brittani VU.
--- NOTE | 2020-01-22 18:22 | NUR ---
Received report from primary care nurse Namita VU. Assumed patient care with Brittani VU. Patient is awake and alert sitting near the nurses station on room air. Call light and items of frequent use within reach. Will continue to monitor for changes.
--- NOTE | 2020-01-22 21:38 | NUR ---
I have reviewed and agree with all interventions, assessments performed and documented by MIRELLA Guerrero.
--- NOTE | 2020-01-22 21:40 | NUR ---
Reported off to Prudence RN. Patient is resting with relaxed and unlabored respirations on RA in no apparent distress. Sitter is at the bedside. Call light and items of frequent use within reach.
[2020-01-22 22:00] VITALS: BP 95/52
--- NOTE | 2020-01-23 06:15 | NUR ---
REFUSING VS THIS AM.
--- NOTE | 2020-01-23 06:18 | NUR ---
Patient in room ORTHO 4009. I have received report from KATHRIN VU and had the opportunity to ask questions and assume patient care.
--- NOTE | 2020-01-23 06:18 | NUR ---
Problems reprioritized. Patient report given, questions answered & plan of care reviewed with JAYCEE VU.
[2020-01-23] MEDS: ziprasidone 20mg capsule PO SCH ×2 (07:28→19:18)
[2020-01-23] MEDS: lactose-reduced food (Ensure Enlive) - 237ml bottle PO SCH ×4 (08:27→19:19)
--- NOTE | 2020-01-23 09:57 | NUR ---
Reassessment: PO intake continues to fluctuate however averaging 50-75% PO intake since last RD assessment with average 75% PO intake of ONS meeting nutrient needs. LBM 01/20. No further nutrition intervention warranted at this time. Will continue to follow. Recommendations: 1) Continue regular diet 2) Encourage PO intake; Ensure Enlive TIDWM 3) Routine bowel care 4) Wt per rx Addendum: 01/23/20 at [address] Amended: Links added.
[2020-01-23 10:00] VITALS: BP 134/58
[2020-01-23 18:00] VITALS: BP 172/76
--- NOTE | 2020-01-23 18:10 | NUR ---
Problems reprioritized. Patient report given, questions answered & plan of care reviewed with ELIZABETH VU.
[2020-01-23 18:30] VITALS: BP 156/74
[2020-01-23 22:00] VITALS: BP 96/46
--- NOTE | 2020-01-24 06:19 | NUR ---
Problems reprioritized. Patient report given, questions answered & plan of care reviewed with Noemi VU. Patient stable at shift change
--- NOTE | 2020-01-24 06:48 | NUR ---
Patient in room ORTHO 4009. I have received report from Prabhjot VU and had the opportunity to ask questions and assume patient care.
[2020-01-24 06:50] VITALS: BP 149/74
[2020-01-24] MEDS: ziprasidone 20mg capsule PO SCH ×2 (08:42→19:15)
--- NOTE | 2020-01-24 10:43 | NUR ---
pt does not like to eat breakfast Addendum: 01/24/20 at 1044 by Dulce Maria Harris RN Amended: Links added.
[2020-01-24 11:57] VITALS: BP 98/50
[2020-01-24] MEDS: lactose-reduced food (Ensure Enlive) - 237ml bottle PO SCH ×2 (13:43→17:50)
--- NOTE | 2020-01-24 14:58 | NUR ---
farshad Shepherd patient in room 4011 Shannan Darby Car[place] J. would like a nicotine patch. He smokes 2 packs per day. Thank you, Giorgio VU #[id number] Addendum: 01/25/20 at 0721 by Dulce Maria Harris RN WRONG PT
--- NOTE | 2020-01-24 18:15 | NUR ---
Problems reprioritized. Patient report given, questions answered & plan of care reviewed with Bhumi VU.
--- NOTE | 2020-01-24 18:59 | NUR ---
Patient in room ORTHO 4009. I have received report from MIRELLA العراقي and had the opportunity to ask questions and assume patient care. Addendum: 01/24/20 at 1900 by Pema Amaro RN Amended: Links added.
[2020-01-25 06:00] VITALS: BP 150/70
--- NOTE | 2020-01-25 06:12 | NUR ---
Problems reprioritized. Patient report given, questions answered & plan of care reviewed with MIRELLA French. Addendum: 01/25/20 at 0613 by Pema Amaro RN Amended: Links added.
--- NOTE | 2020-01-25 06:36 | NUR ---
Patient in room ORTHO 4009. I have received report from MIRELLA SAUCEDA and had the opportunity to ask questions and assume patient care.
[2020-01-25] MEDS: lactose-reduced food (Ensure Enlive) - 237ml bottle PO SCH ×3 (08:13→18:00)
[2020-01-25] MEDS: ziprasidone 20mg capsule PO SCH ×2 (08:13→19:11)
[2020-01-25 10:55] VITALS: BP 140/68
[2020-01-25 18:00] VITALS: BP 144/69
--- NOTE | 2020-01-25 18:25 | NUR ---
Problems reprioritized. Patient report given, questions answered & plan of care reviewed with MIRELLA Nicole.
[2020-01-25 22:00] VITALS: BP 136/62
--- NOTE | 2020-01-26 06:33 | NUR ---
REPORT GIVEN TO MIRELLA GAGNON.
[2020-01-26 07:04] VITALS: BP 123/66
[2020-01-26] MEDS: lactose-reduced food (Ensure Enlive) - 237ml bottle PO SCH ×3 (08:08→18:02)
[2020-01-26] MEDS: ziprasidone 20mg capsule PO SCH ×2 (08:16→20:36)
[2020-01-26 18:00] VITALS: BP 145/71
--- NOTE | 2020-01-26 18:25 | NUR ---
Patient in room ORTHO 4009. I have received report from Bonnie VU and had the opportunity to ask questions and assume patient care.
[2020-01-26 22:00] VITALS: BP 129/48
--- NOTE | 2020-01-27 06:05 | NUR ---
Patient in room ORTHO 4009. I have received report from Guadalupe Esteban and had the opportunity to ask questions and assume patient care.
--- NOTE | 2020-01-27 06:18 | NUR ---
Patient had an uneventful night. Slept, took herself to bathroom, denied having any pain or needs.
--- NOTE | 2020-01-27 06:19 | NUR ---
Problems reprioritized. Patient report given, questions answered & plan of care reviewed with Alice VU. Patient is up in her chair next to bed watching TV.
[2020-01-27 06:41] VITALS: BP 150/78
[2020-01-27] MEDS: lactose-reduced food (Ensure Enlive) - 237ml bottle PO SCH ×3 (08:01→18:09)
[2020-01-27] MEDS: ziprasidone 20mg capsule PO SCH ×2 (08:03→21:07)
[2020-01-27 10:00] VITALS: BP 164/94
[2020-01-27 18:00] VITALS: BP 125/77
--- NOTE | 2020-01-27 18:25 | NUR ---
Problems reprioritized. Patient report given, questions answered & plan of care reviewed with Kareem.
--- NOTE | 2020-01-27 18:30 | NUR ---
Patient in room ORTHO 4009. I have received report from Alice-MIRELLA, and had the opportunity to ask questions and assume patient care.
--- NOTE | 2020-01-27 20:00 | NUR ---
patient has advanced demential. No IV acces, refused new IV access. Elaís, the charge nurse is aware of the issue. Patient is not on IV fluids/medications. She has a sitter at the bedside.
[2020-01-27 22:00] VITALS: BP 159/76
[2020-01-28 05:00] VITALS: BP 135/61
[2020-01-28 06:15] VITALS: BP 135/61
--- NOTE | 2020-01-28 06:22 | NUR ---
Problems reprioritized. Patient report given to NicholeRN, questions answered & plan of care reviewed with .
--- NOTE | 2020-01-28 06:22 | NUR ---
Problems reprioritized. Patient report given, questions answered & plan of care reviewed with Kareem VU.
[2020-01-28] MEDS: ziprasidone 20mg capsule PO SCH ×2 (07:38→20:04)
[2020-01-28] MEDS: lactose-reduced food (Ensure Enlive) - 237ml bottle PO SCH ×3 (08:26→18:33)
[2020-01-28 10:00] VITALS: BP 134/70
--- NOTE | 2020-01-28 12:23 | NUR ---
Reassessment: Pt PO increasing avg 75-100% meals/ONS meeting needs. LBM 01/25. No nutrition concerns at this time. Will continue to monitor. Recommendations: 1) Continue regular diet 2) Encourage PO intake; Ensure Enlive TIDWM 3) Routine bowel care 4) Wt per rx Addendum: 01/28/20 at [address] Amended: Links added.
[2020-01-28 18:00] VITALS: BP 140/66
--- NOTE | 2020-01-28 18:20 | NUR ---
Problems reprioritized. Patient report given, questions answered & plan of care reviewed with Arelis Kraft RN.
[2020-01-28 22:00] VITALS: BP 156/70
--- NOTE | 2020-01-29 06:00 | NUR ---
Patient in room ORTHO 4009. I have received report from Arelis Kraft RN and had the opportunity to ask questions and assume patient care.
--- NOTE | 2020-01-29 06:17 | NUR ---
Problems reprioritized. Patient report given, questions answered & plan of care reviewed with MIRELLA Breaux.
[2020-01-29] MEDS: lactose-reduced food (Ensure Enlive) - 237ml bottle PO SCH ×3 (08:12→18:00)
[2020-01-29] MEDS: ziprasidone 20mg capsule PO SCH ×2 (08:12→19:05)
[2020-01-29 09:54] VITALS: BP 94/52
[2020-01-29 18:00] VITALS: BP 168/78
--- NOTE | 2020-01-29 18:15 | NUR ---
Problems reprioritized. Patient report given, questions answered & plan of care reviewed with Arelis Kraft RN.
--- NOTE | 2020-01-29 18:15 | NUR ---
Patient in room ORTHO 4009. I have received report from Namita VU and had the opportunity to ask questions and assume patient care.
[2020-01-29 19:44] VITALS: BP 143/56
[2020-01-29 22:00] VITALS: BP 156/66
[2020-01-30 05:58] LABS: ALBUMIN 3.1 G/DL (3.4-5.0); ANION GAP 6 (8-16); BLOOD UREA NITROGEN 26 MG/DL (7-18); BUN/CREATININE RATIO 25.5 (6.6-38.0); CALCIUM 8.9 MG/DL (8.5-10.1); CHLORIDE 108 MMOL/L (99-107); CREATININE 1.02 MG/DL (0.40-0.90); GLUCOSE 87 MG/DL (70-104); POTASSIUM 4.2 MMOL/L (3.5-5.1); SODIUM 143 MMOL/L (135-145); TOTAL CARBON DIOXIDE 28.9 MMOL/L (24-32); eGFR 52 ML/MIN
[2020-01-30 06:00] VITALS: BP 145/67
--- NOTE | 2020-01-30 06:08 | NUR ---
Problems reprioritized. Patient report given, questions answered & plan of care reviewed with Namita VU.
[2020-01-30] MEDS: lactose-reduced food (Ensure Enlive) - 237ml bottle PO SCH ×3 (08:13→18:00)
[2020-01-30] MEDS: ziprasidone 20mg capsule PO SCH ×2 (08:32→19:58)
[2020-01-30 10:00] VITALS: BP 152/75
[2020-01-30 17:00] VITALS: BP 152/75
--- NOTE | 2020-01-30 18:19 | NUR ---
Problems reprioritized. Patient report given, questions answered & plan of care reviewed with Prudence RN.
--- NOTE | 2020-01-30 18:47 | NUR ---
Patient in room ORTHO 4009. I have received report from SALIMA VU and had the opportunity to ask questions and assume patient care.
[2020-01-30] MEDS: acetaminophen 325mg tablet PO PRN (19:58)
[2020-01-30 22:17] VITALS: BP 123/68
--- NOTE | 2020-01-31 06:13 | NUR ---
Problems reprioritized. Patient report given, questions answered & plan of care reviewed with Renetta VU and Sravani VU.
--- NOTE | 2020-01-31 06:31 | NUR ---
Patient in room ORTHO 4009. I have received report from Shayla VU and had the opportunity to ask questions and assume patient care.
[2020-01-31] MEDS: ziprasidone 20mg capsule PO SCH ×2 (08:25→19:58)
[2020-01-31] MEDS: lactose-reduced food (Ensure Enlive) - 237ml bottle PO SCH ×3 (08:40→18:00)
[2020-01-31 10:00] VITALS: BP 137/71
--- NOTE | 2020-01-31 18:00 | NUR ---
Patient in room ORTHO 4009. I have received report from Renetta VU & Teresa VU and had the opportunity to ask questions and assume patient care.
--- NOTE | 2020-01-31 18:15 | NUR ---
Problems reprioritized. Patient report given, questions answered & plan of care reviewed with Rut VU .
--- NOTE | 2020-01-31 19:03 | NUR ---
RECEIVED REPORT FROM LORE VU AND ASSUMED PATIENT CARE
[2020-01-31 19:11] VITALS: BP 154/75
[2020-02-01 01:25] VITALS: BP 159/73
--- NOTE | 2020-02-01 06:19 | NUR ---
Problems reprioritized. Patient report given, questions answered & plan of care reviewed with Renetta VU & Sravani RN.
--- NOTE | 2020-02-01 06:28 | NUR ---
Patient in room ORTHO 4009. I have received report from Rolan VU and had the opportunity to ask questions and assume patient care.
[2020-02-01] MEDS: lactose-reduced food (Ensure Enlive) - 237ml bottle PO SCH ×3 (08:00→18:00)
[2020-02-01] MEDS: ziprasidone 20mg capsule PO SCH ×2 (08:11→19:21)
[2020-02-01 10:00] VITALS: BP 150/87
--- NOTE | 2020-02-01 18:10 | NUR ---
Problems reprioritized. Patient report given, questions answered & plan of care reviewed with Rut Pimentel and Giorgio PIMENTEL.
--- NOTE | 2020-02-01 18:24 | NUR ---
Patient in room ORTHO 4009. I have received report from Sravani Pearson RN and had the opportunity to ask questions and assume patient care.
[2020-02-01 18:25] VITALS: BP 156/75
[2020-02-01 22:00] VITALS: BP 130/64
--- NOTE | 2020-02-02 06:19 | NUR ---
Problems reprioritized. Patient report given, questions answered & plan of care reviewed with Sravani VU & Renetta VU.
--- NOTE | 2020-02-02 06:52 | NUR ---
Patient in room ORTHO 4009. I have received report from Lizzie VU and had the opportunity to ask questions and assume patient care.
[2020-02-02] MEDS: ziprasidone 20mg capsule PO SCH ×2 (08:40→20:08)
[2020-02-02] MEDS: lactose-reduced food (Ensure Enlive) - 237ml bottle PO SCH ×3 (08:42→18:00)
[2020-02-02 10:00] VITALS: BP 122/57
[2020-02-02 18:00] VITALS: BP 135/76
--- NOTE | 2020-02-02 18:39 | NUR ---
Patient in room PCU 3023. I have received report from Renetta VU & Sravani VU and had the opportunity to ask questions and assume patient care.
--- NOTE | 2020-02-02 19:19 | NUR ---
RECEIVED REPORT FROM LISA VU AND ASSUMED PATIENT CARE
[2020-02-02 22:00] VITALS: BP 159/74
[2020-02-03] VITALS (7 sets, daily range): BP systolic 103–167; BP diastolic 48–79
--- NOTE | 2020-02-03 06:10 | NUR ---
REPORT GIVEN TO JOSELINE VU
--- NOTE | 2020-02-03 06:15 | NUR ---
Patient in room PCU 3023. I have received report from Rut VU and had the opportunity to ask questions and assume patient care.
[2020-02-03] MEDS: ziprasidone 20mg capsule PO SCH ×2 (07:35→19:31)
[2020-02-03] MEDS: lactose-reduced food (Ensure Enlive) - 237ml bottle PO SCH ×3 (08:00→18:00)
--- NOTE | 2020-02-03 11:50 | NUR ---
Reassessment: Pt PO 25-50% avg regular diet and 75% avg ONS fluctuating but overall meeting nutrient needs given wt. LBM 01/28; NANCIE d/w RN regarding routine bowel care per MD approval. RN is agreeable to giving MoM today since PRN and last administration last month. Will continue to monitor. Recommendations: 1) Continue regular diet 2) Encourage PO intake; Ensure Enlive TIDWM 3) Routine bowel care 4) Wt per rx Addendum: 02/03/20 at [address] Amended: Links added.
--- NOTE | 2020-02-03 13:07 | NUR ---
I brought some milk of mag to patient and suggested she take it.. She said she has a busy night and would not like to take it. I told her that it would help her stomach but she still refused.. I will try to get a stool softener order for her.
--- NOTE | 2020-02-03 16:26 | NUR ---
patient hides the ensure in her bedside drawer for later
--- NOTE | 2020-02-03 18:14 | NUR ---
Patient in room PCU 3023. I have received report from Elizabeth VU and had the opportunity to ask questions and assume patient care.
--- NOTE | 2020-02-03 18:21 | NUR ---
Problems reprioritized. Patient report given, questions answered & plan of care reviewed with Denise VU.
[2020-02-03] MEDS: docusate sod 100mg capsule PO SCH (19:31)
[2020-02-04 02:00] VITALS: BP 134/80
--- NOTE | 2020-02-04 06:17 | NUR ---
Problems reprioritized. Patient report given, questions answered & plan of care reviewed with Jacoby VU.
--- NOTE | 2020-02-04 06:44 | NUR ---
Patient in room PCU 3023. I have received report from Denise VU and had the opportunity to ask questions and assume patient care.
[2020-02-04 07:00] VITALS: BP 116/69
[2020-02-04] MEDS: docusate sod 100mg capsule PO SCH ×2 (07:49→19:28)
[2020-02-04] MEDS: ziprasidone 20mg capsule PO SCH ×2 (07:50→19:29)
[2020-02-04] MEDS: lactose-reduced food (Ensure Enlive) - 237ml bottle PO SCH ×3 (07:50→18:39)
[2020-02-04 11:00] VITALS: BP 152/68
[2020-02-04 15:00] VITALS: BP 129/70
[2020-02-04 18:00] VITALS: BP 97/68
--- NOTE | 2020-02-04 18:23 | NUR ---
Problems reprioritized. Patient report given, questions answered & plan of care reviewed with Li VU.
--- NOTE | 2020-02-04 18:29 | NUR ---
Patient in room PCU 3023. I have received report from Jacoby VU and had the opportunity to ask questions and assume patient care.
[2020-02-04 22:00] VITALS: BP 108/77
[2020-02-05 06:00] VITALS: BP 96/55
--- NOTE | 2020-02-05 06:18 | NUR ---
Problems reprioritized. Patient report given, questions answered & plan of care reviewed with Alice VU.
--- NOTE | 2020-02-05 06:29 | NUR ---
Patient in room PCU 3023. I have received report from Li and had the opportunity to ask questions and assume patient care.
[2020-02-05] MEDS: ziprasidone 20mg capsule PO SCH ×2 (08:19→19:44)
[2020-02-05] MEDS: lactose-reduced food (Ensure Enlive) - 237ml bottle PO SCH ×3 (08:19→17:23)
[2020-02-05] MEDS: docusate sod 100mg capsule PO SCH ×2 (08:19→19:44)
[2020-02-05 11:00] VITALS: BP 102/54
[2020-02-05 15:00] VITALS: BP 107/65
[2020-02-05 18:00] VITALS: BP 109/55
--- NOTE | 2020-02-05 18:03 | NUR ---
Problems reprioritized. Patient report given, questions answered & plan of care reviewed with Prabhjot.
--- NOTE | 2020-02-05 18:03 | NUR ---
Patient in room U 3023-C. I have received report from MIRELLA Jenkins and had the opportunity to ask questions and assume patient care.
--- NOTE | 2020-02-05 22:52 | NUR ---
Patient refused VS scheduled to be taken at 22:00
--- NOTE | 2020-02-06 02:57 | NUR ---
Patient refused VS scheduled to be taken at 0200
[2020-02-06 06:00] VITALS: BP 116/73
--- NOTE | 2020-02-06 06:22 | NUR ---
Problems reprioritized. Patient report given, questions answered & plan of care reviewed with MIRELLA Dozier.
--- NOTE | 2020-02-06 06:30 | NUR ---
Patient in room PCU 3023. I have received report from Prabhjot VU and had the opportunity to ask questions and assume patient care.
[2020-02-06] MEDS: docusate sod 100mg capsule PO SCH ×2 (08:16→19:46)
[2020-02-06] MEDS: ziprasidone 20mg capsule PO SCH ×2 (08:16→19:46)
[2020-02-06] MEDS: lactose-reduced food (Ensure Enlive) - 237ml bottle PO SCH ×3 (08:17→18:48)
[2020-02-06 11:00] VITALS: BP 91/55
[2020-02-06 15:00] VITALS: BP 95/61
[2020-02-06 18:00] VITALS: BP 118/74
--- NOTE | 2020-02-06 18:15 | NUR ---
Problems reprioritized. Patient report given, questions answered & plan of care reviewed with Magdaleno VU.
--- NOTE | 2020-02-06 18:21 | NUR ---
Patient in room PCU 3023. I have received report from Jacoby VU and had the opportunity to ask questions and assume patient care.
--- NOTE | 2020-02-06 21:46 | NUR ---
Patient in room PCU 3023. I have received report from MIRELLA Dolan and had the opportunity to ask questions and assume patient care.
--- NOTE | 2020-02-06 22:05 | NUR ---
Problems reprioritized. Patient report given, questions answered & plan of care reviewed with Renu VU.
--- NOTE | 2020-02-06 23:27 | NUR ---
Patient refused vital signs at 2200. Patient stated "No, I want to sleep."
[2020-02-07 02:00] VITALS: BP 122/83
--- NOTE | 2020-02-07 06:15 | NUR ---
Problems reprioritized. Patient report given, questions answered & plan of care reviewed with MIRELLA Valentin.
[2020-02-07 07:00] VITALS: BP 150/71
[2020-02-07] MEDS: lactose-reduced food (Ensure Enlive) - 237ml bottle PO SCH ×3 (08:44→18:08)
[2020-02-07] MEDS: ziprasidone 20mg capsule PO SCH ×2 (08:57→19:21)
[2020-02-07] MEDS: docusate sod 100mg capsule PO SCH ×2 (08:58→19:21)
[2020-02-07 11:00] VITALS: BP_SYST 160; BP_SYST 163; BP_DIAS 67; BP_DIAS 86
[2020-02-07 15:00] VITALS: BP 147/73
--- NOTE | 2020-02-07 18:25 | NUR ---
Problems reprioritized. Patient report given, questions answered & plan of care reviewed with Magdaleno VU.
--- NOTE | 2020-02-07 18:27 | NUR ---
Patient in room PCU 3023. I have received report from Peter VU and had the opportunity to ask questions and assume patient care.
--- NOTE | 2020-02-07 18:27 | NUR ---
Problems reprioritized. Patient report given, questions answered & plan of care reviewed with Ivania VU
[2020-02-07 19:00] VITALS: BP 118/48
[2020-02-07 23:00] VITALS: BP 91/52
--- NOTE | 2020-02-08 06:04 | NUR ---
Problems reprioritized. Patient report given, questions answered & plan of care reviewed with Barbie VU.
--- NOTE | 2020-02-08 06:11 | NUR ---
Patient in room PCU 3023. I have received report from Magdaleno VU and had the opportunity to ask questions and assume patient care.
[2020-02-08] MEDS: lactose-reduced food (Ensure Enlive) - 237ml bottle PO SCH ×3 (07:50→18:00)
[2020-02-08] MEDS: docusate sod 100mg capsule PO SCH ×2 (07:50→20:00)
[2020-02-08] MEDS: ziprasidone 20mg capsule PO SCH ×2 (07:50→21:04)
[2020-02-08 11:00] VITALS: BP 156/79
--- NOTE | 2020-02-08 18:15 | NUR ---
Patient in room PCU 3023. I have received report from Barbie VU and had the opportunity to ask questions and assume patient care.
--- NOTE | 2020-02-08 18:16 | NUR ---
Problems reprioritized. Patient report given, questions answered & plan of care reviewed with Xin VU.
[2020-02-08 19:00] VITALS: BP 133/79
--- NOTE | 2020-02-08 19:58 | NUR ---
pt refused meds stated she doesn't take anything. will try again a little later
[2020-02-08 23:00] VITALS: BP 128/37
--- NOTE | 2020-02-09 06:05 | NUR ---
Problems reprioritized. Patient report given, questions answered & plan of care reviewed with Stormy RNS.
--- NOTE | 2020-02-09 06:30 | NUR ---
Patient in room U 3023. I have received report from MIRELLA Lauren and had the opportunity to ask questions and assume patient care. Patient sleeping in bed, no needs at this time.
[2020-02-09 07:00] VITALS: BP 124/74
[2020-02-09] MEDS: docusate sod 100mg capsule PO SCH ×2 (08:00→20:08)
[2020-02-09] MEDS: lactose-reduced food (Ensure Enlive) - 237ml bottle PO SCH ×3 (08:00→18:00)
[2020-02-09] MEDS: ziprasidone 20mg capsule PO SCH ×2 (08:46→20:08)
[2020-02-09 11:00] VITALS: BP 147/82
--- NOTE | 2020-02-09 14:46 | NUR ---
Reassessment: Pt PO continues to fluctuate 25-50% avg meals and ensure enlives TIDWM. LBM 02/06 refusing colace today per EMR. Likely still meeting needs given current PO. PO to fluctuate w/ advanced dementia DX. Will continue to monitor. Recommendations: 1) Continue regular diet 2) Encourage PO intake; Ensure Enlive TIDWM 3) Routine bowel care 4) Wt per rx Addendum: 02/09/20 at [address] Amended: Links added.
[2020-02-09 15:00] VITALS: BP 150/60
[2020-02-09 18:00] VITALS: BP 121/78
--- NOTE | 2020-02-09 18:14 | NUR ---
Problems reprioritized. Patient report given, questions answered & plan of care reviewed with Xin VU.
[2020-02-09 22:00] VITALS: BP 108/51
--- NOTE | 2020-02-10 06:07 | NUR ---
Problems reprioritized. Patient report given, questions answered & plan of care reviewed with Deb VU.
--- NOTE | 2020-02-10 06:10 | NUR ---
Patient in room PCU 3023. I have received report from Xin VU and had the opportunity to ask questions and assume patient care.
[2020-02-10 07:10] VITALS: BP 159/63
[2020-02-10] MEDS: lactose-reduced food (Ensure Enlive) - 237ml bottle PO SCH ×3 (08:51→18:00)
[2020-02-10] MEDS: ziprasidone 20mg capsule PO SCH ×2 (08:51→20:18)
[2020-02-10] MEDS: docusate sod 100mg capsule PO SCH ×2 (08:51→20:18)
[2020-02-10 11:00] VITALS: BP 133/68
[2020-02-10 15:00] VITALS: BP 128/63
[2020-02-10 18:00] VITALS: BP 123/64
--- NOTE | 2020-02-10 18:03 | NUR ---
Problems reprioritized. Patient report given, questions answered & plan of care reviewed with Jessica VU.
--- NOTE | 2020-02-10 18:20 | NUR ---
[place] Documentation I have reviewed and agree with all interventions, assessments performed and documented by MIRELLA Jaramillo .
[2020-02-10 22:00] VITALS: BP 145/68
[2020-02-11 02:00] VITALS: BP 159/75
--- NOTE | 2020-02-11 06:11 | NUR ---
Problems reprioritized. Patient report given, questions answered & plan of care reviewed with MIRELLA Euceda.
--- NOTE | 2020-02-11 06:13 | NUR ---
Patient in room PCU 3023. I have received report from MIRELLA Marsh and had the opportunity to ask questions and assume patient care.
--- NOTE | 2020-02-11 07:16 | NUR ---
Pt refuses morning BP check.
[2020-02-11] MEDS: docusate sod 100mg capsule PO SCH ×3 (08:00→19:57)
[2020-02-11] MEDS: lactose-reduced food (Ensure Enlive) - 237ml bottle PO SCH ×3 (08:00→18:00)
[2020-02-11] MEDS: ziprasidone 20mg capsule PO SCH ×3 (08:00→19:57)
--- NOTE | 2020-02-11 08:37 | NUR ---
Pt refused morning medications.
[2020-02-11 11:00] VITALS: BP 148/78
--- NOTE | 2020-02-11 16:00 | NUR ---
Pt transferred up to [facility]
[2020-02-11 18:00] VITALS: BP 125/77
--- NOTE | 2020-02-11 18:06 | NUR ---
Problems reprioritized. Patient report given, questions answered & plan of care reviewed with MIRELLA Walker.
--- NOTE | 2020-02-11 18:09 | NUR ---
Patient in room ORTHO 4009. I have received report from Kinsey VU and had the opportunity to ask questions and assume patient care.
[2020-02-11 22:00] VITALS: BP 156/76
--- NOTE | 2020-02-12 06:26 | NUR ---
Problems reprioritized. Patient report given, questions answered & plan of care reviewed with Alice VU.
[2020-02-12 06:51] VITALS: BP 123/59
[2020-02-12] MEDS: ziprasidone 20mg capsule PO SCH ×2 (08:17→19:51)
[2020-02-12] MEDS: lactose-reduced food (Ensure Enlive) - 237ml bottle PO SCH ×3 (08:18→18:00)
[2020-02-12] MEDS: docusate sod 100mg capsule PO SCH ×2 (08:18→19:51)
[2020-02-12 09:47] VITALS: BP 119/62
[2020-02-12 18:00] VITALS: BP 138/65
--- NOTE | 2020-02-12 18:06 | NUR ---
Problems reprioritized. Patient report given, questions answered & plan of care reviewed with Denise VU.
--- NOTE | 2020-02-12 18:22 | NUR ---
Patient in room ORTHO 4009. I have received report from Alice VU and had the opportunity to ask questions and assume patient care.
[2020-02-12 22:00] VITALS: BP 123/73
[2020-02-13 06:00] VITALS: BP 101/53
--- NOTE | 2020-02-13 06:25 | NUR ---
Problems reprioritized. Patient report given, questions answered & plan of care reviewed with Alice VU.
[2020-02-13] MEDS: docusate sod 100mg capsule PO SCH ×2 (07:43→19:27)
[2020-02-13] MEDS: ziprasidone 20mg capsule PO SCH ×2 (07:45→19:27)
[2020-02-13] MEDS: lactose-reduced food (Ensure Enlive) - 237ml bottle PO SCH ×3 (07:45→18:03)
[2020-02-13 10:00] VITALS: BP 137/59
[2020-02-13 18:00] VITALS: BP 156/79
--- NOTE | 2020-02-13 18:18 | NUR ---
Problems reprioritized. Patient report given, questions answered & plan of care reviewed with Denise VU.
--- NOTE | 2020-02-13 18:19 | NUR ---
Patient in room ORTHO 4009. I have received report from Alice VU and had the opportunity to ask questions and assume patient care.
[2020-02-13 22:00] VITALS: BP 114/74
[2020-02-14 06:00] VITALS: BP 105/59
--- NOTE | 2020-02-14 06:34 | NUR ---
Problems reprioritized. Patient report given, questions answered & plan of care reviewed with Jed VU.
--- NOTE | 2020-02-14 06:56 | NUR ---
Patient in room ORTHO 4009. I have received report from Denise VU and had the opportunity to ask questions and assume patient care.
[2020-02-14] MEDS: ziprasidone 20mg capsule PO SCH ×2 (08:03→19:21)
[2020-02-14] MEDS: lactose-reduced food (Ensure Enlive) - 237ml bottle PO SCH ×3 (08:03→18:00)
[2020-02-14] MEDS: docusate sod 100mg capsule PO SCH ×2 (08:03→20:00)
[2020-02-14 10:00] VITALS: BP 154/72
[2020-02-14 18:00] VITALS: BP 169/78
[2020-02-14 22:00] VITALS: BP 133/86
[2020-02-15 06:00] VITALS: BP 146/73
[2020-02-15] MEDS: docusate sod 100mg capsule PO SCH ×2 (08:02→19:44)
[2020-02-15] MEDS: ziprasidone 20mg capsule PO SCH ×2 (08:02→19:43)
[2020-02-15] MEDS: lactose-reduced food (Ensure Enlive) - 237ml bottle PO SCH ×3 (08:07→18:00)
[2020-02-15 10:00] VITALS: BP 95/53
--- NOTE | 2020-02-15 12:57 | NUR ---
Reassessment: Pt PO ~25%avg ensure enlives TIDWM and roughly 50% avg regular diet though continues to fluctuate from 25-100% some meals. PO 50% breakfast and 25% ONS this AM. Likely PO to fluctuate r/t ALOC AOx1. LBM 02/12. Will continue to monitor. Recommendations: 1) Continue regular diet 2) Encourage PO intake; Ensure Enlive TIDWM 3) Routine bowel care 4) Wt per rx Addendum: 02/15/20 at [address] Amended: Links added.
[2020-02-15 18:00] VITALS: BP 111/67
--- NOTE | 2020-02-15 18:28 | NUR ---
Problems reprioritized. Patient report given, questions answered & plan of care reviewed with BRANDY VU.
--- NOTE | 2020-02-15 18:39 | NUR ---
Patient in room ORTHO 4009. I have received report from MIRELLA BERG and had the opportunity to ask questions and assume patient care.
[2020-02-15 22:00] VITALS: BP 132/58
[2020-02-16 06:00] VITALS: BP 142/78
--- NOTE | 2020-02-16 06:39 | NUR ---
Problems reprioritized. Patient report given, questions answered & plan of care reviewed with MIRELLA BERG.
[2020-02-16] MEDS: docusate sod 100mg capsule PO SCH ×2 (08:00→19:43)
[2020-02-16] MEDS: hyDRALAzine 10mg tablet PO PRN (08:00)
[2020-02-16] MEDS: ziprasidone 20mg capsule PO SCH ×2 (08:00→19:43)
[2020-02-16] MEDS: lactose-reduced food (Ensure Enlive) - 237ml bottle PO SCH ×3 (08:01→18:00)
[2020-02-16 09:58] VITALS: BP 106/52
[2020-02-16 18:00] VITALS: BP 106/68
--- NOTE | 2020-02-16 18:26 | NUR ---
Problems reprioritized. Patient report given, questions answered & plan of care reviewed with Heath VU.
[2020-02-16 22:00] VITALS: BP 116/60
[2020-02-17 06:00] VITALS: BP 115/76
--- NOTE | 2020-02-17 06:35 | NUR ---
Patient in room ORTHO 4006. I have received report from LOUISE VU and had the opportunity to ask questions and assume patient care.
[2020-02-17] MEDS: lactose-reduced food (Ensure Enlive) - 237ml bottle PO SCH ×3 (08:00→18:00)
[2020-02-17] MEDS: ziprasidone 20mg capsule PO SCH ×2 (08:01→19:50)
[2020-02-17] MEDS: docusate sod 100mg capsule PO SCH ×2 (08:01→20:00)
[2020-02-17 10:00] VITALS: BP 156/66
[2020-02-17 18:00] VITALS: BP 111/66
--- NOTE | 2020-02-17 18:25 | NUR ---
Problems reprioritized. Patient report given, questions answered & plan of care reviewed with Jessica VU.
--- NOTE | 2020-02-18 06:47 | NUR ---
Patient in room ORTHO 4009. I have received report from MIRELLA RAMAN and had the opportunity to ask questions and assume patient care.
[2020-02-18 08:18] VITALS: BP 123/78
[2020-02-18] MEDS: docusate sod 100mg capsule PO SCH ×2 (08:25→20:36)
[2020-02-18] MEDS: lactose-reduced food (Ensure Enlive) - 237ml bottle PO SCH ×3 (08:25→18:21)
[2020-02-18] MEDS: ziprasidone 20mg capsule PO SCH ×2 (08:25→20:36)
[2020-02-18 10:49] VITALS: BP 129/60
[2020-02-18 18:00] VITALS: BP 160/77
--- NOTE | 2020-02-18 18:00 | NUR ---
Patient in room ORTHO 4009. I have received report from Jd VU and had the opportunity to ask questions and assume patient care.
--- NOTE | 2020-02-18 18:21 | NUR ---
Problems reprioritized. Patient report given, questions answered & plan of care reviewed with MIRELLA CHAPARRO.
[2020-02-18 22:00] VITALS: BP 135/66
[2020-02-19 06:00] VITALS: BP 146/67
--- NOTE | 2020-02-19 06:37 | NUR ---
Problems reprioritized. Patient report given, questions answered & plan of care reviewed with Alice VU.
--- NOTE | 2020-02-19 06:56 | NUR ---
Patient refused vitals. Addendum: 02/19/20 at 0656 by Alice Cullen RN Amended: Links added.
[2020-02-19] MEDS: ziprasidone 20mg capsule PO SCH ×2 (08:23→19:31)
[2020-02-19] MEDS: docusate sod 100mg capsule PO SCH ×2 (08:23→19:31)
[2020-02-19] MEDS: lactose-reduced food (Ensure Enlive) - 237ml bottle PO SCH ×3 (08:23→18:03)
[2020-02-19 18:00] VITALS: BP 147/70
--- NOTE | 2020-02-19 18:00 | NUR ---
Patient in room ORTHO 4009. I have received report from Alice VU and had the opportunity to ask questions and assume patient care.
--- NOTE | 2020-02-19 18:06 | NUR ---
Problems reprioritized. Patient report given, questions answered & plan of care reviewed with Jessica VU.
[2020-02-19 22:00] VITALS: BP 115/68
--- NOTE | 2020-02-20 06:17 | NUR ---
Problems reprioritized. Patient report given, questions answered & plan of care reviewed with Alice VU.
--- NOTE | 2020-02-20 06:34 | NUR ---
Refused vital signs Addendum: 02/20/20 at 0635 by Alice Cullen RN Amended: Links added.
[2020-02-20] MEDS: ziprasidone 20mg capsule PO SCH ×2 (07:37→19:11)
[2020-02-20] MEDS: docusate sod 100mg capsule PO SCH ×2 (07:37→19:11)
[2020-02-20] MEDS: lactose-reduced food (Ensure Enlive) - 237ml bottle PO SCH ×3 (07:48→18:00)
[2020-02-20 10:00] VITALS: BP 123/63
--- NOTE | 2020-02-20 13:31 | NUR ---
Reassessment: Pt has stable appetite and eating avergae of 25-50% of meals on regular diet. Consuming about 50% average of ensure enlives TIDWM. Weight is stable, no change however is only patient stated. Need new weight for assessment accuracy, d/w assistant sales manager. LBM 02/15, receiving colace BID for bowel care. Per MD note patient is greatly disabled d/t advanced dementia. She is [facility]. Will continue to monitor. Recommendations: 1) Continue regular diet 2) Encourage PO intake; Ensure Enlive TIDWM 3) Routine bowel care 4) Wt per rx Addendum: 02/20/20 at [address] Amended: Links added.
[2020-02-20 18:00] VITALS: BP 111/66
--- NOTE | 2020-02-20 18:08 | NUR ---
Problems reprioritized. Patient report given, questions answered & plan of care reviewed with Yolanda VU.
[2020-02-20 22:00] VITALS: BP 128/72
--- NOTE | 2020-02-21 06:38 | NUR ---
Reported off to Reyna VU. Patient is awake and alert on room air watching television. Sitter is at the bedside. Call light and items of frequent use within reach.
--- NOTE | 2020-02-21 07:09 | NUR ---
Patient in room ORTHO 4009. I have received report from Yolanda VU and had the opportunity to ask questions and assume patient care.
[2020-02-21] MEDS: lactose-reduced food (Ensure Enlive) - 237ml bottle PO SCH ×3 (09:11→18:52)
[2020-02-21] MEDS: docusate sod 100mg capsule PO SCH ×2 (09:14→20:52)
[2020-02-21] MEDS: ziprasidone 20mg capsule PO SCH ×2 (09:14→20:52)
[2020-02-21 10:15] VITALS: BP 154/74
[2020-02-21 18:00] VITALS: BP 123/64
--- NOTE | 2020-02-21 19:08 | NUR ---
Problems reprioritized. Patient report given, questions answered & plan of care reviewed with Pat RN.
[2020-02-21 22:00] VITALS: BP 96/54
[2020-02-22 06:00] VITALS: BP 157/65
--- NOTE | 2020-02-22 06:57 | NUR ---
Patient in room [facility]TH[facility] 4009. I have received report from Inez RN and had the opportunity to ask questions and assume patient care.
[2020-02-22] MEDS: docusate sod 100mg capsule PO SCH ×2 (07:22→19:37)
[2020-02-22] MEDS: ziprasidone 20mg capsule PO SCH ×2 (07:23→19:37)
[2020-02-22] MEDS: lactose-reduced food (Ensure Enlive) - 237ml bottle PO SCH ×3 (08:00→14:38)
--- NOTE | 2020-02-22 10:00 | NUR ---
Patient OOB in a chair after walk with tech sitting in the hallway looking at a book. Tolerating well, no issues currently. Patient is pleasant and content in [address].
[2020-02-22 10:50] VITALS: BP 95/56
[2020-02-22 18:00] VITALS: BP 101/74
--- NOTE | 2020-02-22 18:15 | NUR ---
Problems reprioritized. Patient report given, questions answered & plan of care reviewed with NOC RN.
--- NOTE | 2020-02-22 21:15 | NUR ---
report given to cam gill.pt calm and resting in bed with sitter at the bedside.
--- NOTE | 2020-02-22 21:15 | NUR ---
Patient in room ORTH[facility] 4009. I have received report from Martha RN and had the opportunity to ask questions and assume patient care. I agreed with Aprils physical assessment
--- NOTE | 2020-02-22 21:15 | NUR ---
Patient in room ORTHO 4009. I have received report from Martha RN and had the opportunity to ask questions and assume patient care.
--- NOTE | 2020-02-23 06:22 | NUR ---
Problems reprioritized. Patient report given, questions answered & plan of care reviewed with Gisela VU.
--- NOTE | 2020-02-23 06:51 | NUR ---
Patient in room ORTH[facility] 4009. I have received report from MIRELLA Nava and had the opportunity to ask questions and assume patient care.
--- NOTE | 2020-02-23 07:05 | NUR ---
Patient refused vitals this morning.
[2020-02-23] MEDS: lactose-reduced food (Ensure Enlive) - 237ml bottle PO SCH ×3 (08:02→18:09)
[2020-02-23] MEDS: docusate sod 100mg capsule PO SCH ×2 (08:10→19:38)
[2020-02-23] MEDS: ziprasidone 20mg capsule PO SCH ×2 (08:10→19:37)
--- NOTE | 2020-02-23 08:30 | NUR ---
Pt refuses to allow myself or primary nurses to perform assessments of any kind. as well as she refuses her medications. She is pleasant, but resistive care continuously.
[2020-02-23 10:00] VITALS: BP 170/70
[2020-02-23] MEDS: hyDRALAzine 10mg tablet PO PRN (12:15)
--- NOTE | 2020-02-23 15:07 | NUR ---
Reassessment: Pt PO 25-50% avg meals improving to 100% PO past 3 days in addition to 25-50% ensures improving to 100% recently. LBM 02/21. No nutrition concerns at this time. NANCIE d/w RN regarding new scaled wt; results 59kg up from 52kg though initially pt stated and pt ALOC. Currently meeting needs. No new labs since 01/30/20. Will continue to monitor. Recommendations: 1) Continue regular diet 2) Encourage PO intake; Ensure Enlive TIDWM 3) Routine bowel care 4) Wt per rx Addendum: 02/23/20 at [address] Amended: Links added.
[2020-02-23 18:00] VITALS: BP 179/99
--- NOTE | 2020-02-23 18:08 | NUR ---
Patient in room ORTHO 4009. I have received report from Gisela VU and had the opportunity to ask questions and assume patient care.
--- NOTE | 2020-02-23 18:09 | NUR ---
Problems reprioritized. Patient report given, questions answered & plan of care reviewed with MIRELLA Jefferson.
[2020-02-23 19:36] VITALS: BP 129/63
--- NOTE | 2020-02-23 21:23 | NUR ---
Patient refusing vitals at this time.
--- NOTE | 2020-02-24 00:05 | NUR ---
Problems reprioritized. Patient report given, questions answered & plan of care reviewed with zoran VU.
--- NOTE | 2020-02-24 00:09 | NUR ---
Patient in room ORTHO 4009. I have received report from MIRELLA Jefferson and had the opportunity to ask questions and assume patient care.
[2020-02-24 06:10] VITALS: BP 131/77
--- NOTE | 2020-02-24 06:17 | NUR ---
Problems reprioritized. Patient report given, questions answered & plan of care reviewed with MIRELLA Johnson.
--- NOTE | 2020-02-24 06:33 | NUR ---
Apparently patient refused am vital signs, I will attempt to get another set this morning.
--- NOTE | 2020-02-24 06:33 | NUR ---
Patient in room ORTHO 4009. I have received report from Melissa VU and had the opportunity to ask questions and assume patient care.
[2020-02-24] MEDS: ziprasidone 20mg capsule PO SCH ×2 (07:12→19:29)
[2020-02-24] MEDS: docusate sod 100mg capsule PO SCH ×2 (07:12→19:29)
[2020-02-24] MEDS: lactose-reduced food (Ensure Enlive) - 237ml bottle PO SCH ×3 (08:00→18:00)
[2020-02-24 10:00] VITALS: BP 93/58
[2020-02-24 17:00] VITALS: BP 159/79
--- NOTE | 2020-02-24 18:33 | NUR ---
Patient in room ORTHO 4009. I have received report from JOSELINE VU and had the opportunity to ask questions and assume patient care.
--- NOTE | 2020-02-25 06:10 | NUR ---
Patient in room ORTHO 4009. I have received report from Shayla VU and had the opportunity to ask questions and assume patient care.
--- NOTE | 2020-02-25 06:18 | NUR ---
Problems reprioritized. Patient report given, questions answered & plan of care reviewed with Deb VU.
[2020-02-25] MEDS: docusate sod 100mg capsule PO SCH ×2 (08:55→19:53)
[2020-02-25] MEDS: ziprasidone 20mg capsule PO SCH ×2 (08:55→19:53)
[2020-02-25] MEDS: lactose-reduced food (Ensure Enlive) - 237ml bottle PO SCH ×3 (08:55→18:00)
[2020-02-25 10:00] VITALS: BP 99/64
--- NOTE | 2020-02-25 17:18 | NUR ---
Problems reprioritized. Patient report given, questions answered & plan of care reviewed with CHRISTIANNE VU.
[2020-02-25 18:00] VITALS: BP 103/62
--- NOTE | 2020-02-25 18:45 | NUR ---
Patient in room [facility] 349. I have received report from Ddee VU and had the opportunity to ask questions and assume patient care.
--- NOTE | 2020-02-26 06:26 | NUR ---
Problems reprioritized. Patient report given, questions answered & plan of care reviewed with Dede VU.
[2020-02-26] MEDS: lactose-reduced food (Ensure Enlive) - 237ml bottle PO SCH ×3 (08:00→18:28)
[2020-02-26 08:47] VITALS: BP 159/68
[2020-02-26] MEDS: ziprasidone 20mg capsule PO SCH ×2 (09:56→19:58)
[2020-02-26] MEDS: docusate sod 100mg capsule PO SCH ×2 (09:57→20:00)
[2020-02-26 11:00] VITALS: BP 142/59
[2020-02-26 18:00] VITALS: BP 156/78
--- NOTE | 2020-02-26 18:43 | NUR ---
Received report from primary care nurse Dede VU and student RN Brandy. Patient awake and alert on room air sitting in a chair talking to the sitter. In no apparent distress call light and items of frequent use within reach. Will continue to monitor for changes.
[2020-02-27 00:22] VITALS: BP 160/65
--- NOTE | 2020-02-27 06:48 | NUR ---
Reported off to Kemi VU. Patient is resting with relaxed and unlabored respirations on room air. In no apparent distress. Sitter at the bedside.
[2020-02-27] MEDS: docusate sod 100mg capsule PO SCH ×2 (08:00→20:00)
[2020-02-27] MEDS: lactose-reduced food (Ensure Enlive) - 237ml bottle PO SCH ×3 (08:12→18:20)
[2020-02-27] MEDS: ziprasidone 20mg capsule PO SCH ×2 (08:13→19:03)
[2020-02-27 11:00] VITALS: BP 147/64
[2020-02-27 18:00] VITALS: BP 109/71
--- NOTE | 2020-02-27 18:10 | NUR ---
Patient in room [facility] 349. I have received report from Kemi VU and had the opportunity to ask questions and assume patient care.
--- NOTE | 2020-02-27 18:22 | NUR ---
Gave report to Namita VU.
[2020-02-27 20:06] VITALS: BP 109/71
--- NOTE | 2020-02-27 20:06 | NUR ---
refused temp, hr and o2 sat. Addendum: 02/27/20 at 2006 by Queenie Castillo RN Amended: Links added.
--- NOTE | 2020-02-28 06:19 | NUR ---
Problems reprioritized. Patient report given, questions answered & plan of care reviewed with Kemi VU.
[2020-02-28 07:00] VITALS: BP 145/59
[2020-02-28] MEDS: docusate sod 100mg capsule PO SCH ×2 (08:00→19:32)
[2020-02-28] MEDS: lactose-reduced food (Ensure Enlive) - 237ml bottle PO SCH ×3 (08:00→18:00)
[2020-02-28] MEDS: ziprasidone 20mg capsule PO SCH ×2 (09:06→19:32)
[2020-02-28 11:00] VITALS: BP 82/55
[2020-02-28 11:15] VITALS: BP 93/56
[2020-02-28 16:57] VITALS: BP 112/74
--- NOTE | 2020-02-28 18:20 | NUR ---
Gave report to Martha MIRELLA.
[2020-02-28 19:00] VITALS: BP 99/66
[2020-02-29 08:00] VITALS: BP 157/65
[2020-02-29] MEDS: ziprasidone 20mg capsule PO SCH ×2 (08:18→19:24)
[2020-02-29] MEDS: docusate sod 100mg capsule PO SCH ×2 (08:18→19:24)
[2020-02-29] MEDS: lactose-reduced food (Ensure Enlive) - 237ml bottle PO SCH ×3 (08:19→18:00)
[2020-02-29 11:00] VITALS: BP 123/76
--- NOTE | 2020-02-29 18:24 | NUR ---
Report to Laura VU
--- NOTE | 2020-02-29 18:41 | NUR ---
Patient in room [facility] 349. I have received report from cam Jackson and had the opportunity to ask questions and assume patient care.
[2020-02-29 20:00] VITALS: BP 131/81
--- NOTE | 2020-03-01 06:31 | NUR ---
Problems reprioritized. Patient report given, questions answered & plan of care reviewed with MIRELLA WARNER.
[2020-03-01 07:45] VITALS: BP 124/77
[2020-03-01] MEDS: ziprasidone 20mg capsule PO SCH ×2 (07:58→19:41)
[2020-03-01] MEDS: lactose-reduced food (Ensure Enlive) - 237ml bottle PO SCH ×3 (07:59→18:00)
[2020-03-01] MEDS: docusate sod 100mg capsule PO SCH ×2 (07:59→19:40)
[2020-03-01 11:00] VITALS: BP 100/62
--- NOTE | 2020-03-01 11:15 | NUR ---
PAGER ID: [phone] MESSAGE: Ramos Calvillo [id number] : need new sitter order, can I renew? thanks! [email or web address] [id number]
--- NOTE | 2020-03-01 11:29 | NUR ---
Reassessment: Pt continues with fluctuating PO intake, averaging 50% PO intake of meals with some 75% PO intake including at breakfast this morning. Pt averaging 25-50% PO intake of Ensure Enlive TID. Fluctuations in PO intake could be r/t mentation, currently documented as A/O x 2 and confused. Pt with a sitter at bedside. With PO intake of ONS and meals combined, pt roughly consuming [id number] kcal and 75-90 g protein meeting greater than 112% estimated nutrient needs. LBM 02/26. Pt receiving routine bowel care. D/w dietary to send prunes and prune juice with next meal to assist with bowel regularity. Pt continues awaiting placement. Will continue to follow. Recommendations: 1) Continue regular diet 2) Encourage PO intake; Ensure Enlive TIDWM 3) Routine bowel care 4) Wt per rx Addendum: 03/01/20 at [address] Amended: Links added.
--- NOTE | 2020-03-01 18:29 | NUR ---
Problems reprioritized. Patient report given, questions answered & plan of care reviewed with MIRELLA CONWAY.
--- NOTE | 2020-03-01 18:31 | NUR ---
Patient in room [facility] 349. I have received report from Noy VU and had the opportunity to ask questions and assume patient care.
[2020-03-01 20:17] VITALS: BP 132/74
--- NOTE | 2020-03-02 06:10 | NUR ---
Problems reprioritized. Patient report given, questions answered & plan of care reviewed with Nazia VU.
--- NOTE | 2020-03-02 06:37 | NUR ---
Patient in room [facility] 349. I have received report from arnol levy and had the opportunity to ask questions and assume patient care.
[2020-03-02] MEDS: ziprasidone 20mg capsule PO SCH (07:24)
[2020-03-02] MEDS: docusate sod 100mg capsule PO SCH (07:24)
[2020-03-02] MEDS: lactose-reduced food (Ensure Enlive) - 237ml bottle PO SCH (07:25)
[2020-03-02 08:00] VITALS: BP 137/58
[2020-03-02 11:00] VITALS: BP 90/64
[2020-03-02] MEDS ORDERED: DOCU100C40 PO (11:23)
[2020-03-02] MEDS ORDERED: ZIPR20CA12 PO (11:23)
[2020-03-02] MEDS ORDERED: hyDRALAzine tablet PO (11:23)
[2020-03-02] MEDS ORDERED: LACT-237 PO (11:23)
--- NOTE | 2020-03-02 12:48 | NUR ---
All cares given to patient. patient appears stable. report called to Shayy at [facility]. , patient transported via wheel chair and [facility] escorted by ambulance personnel. [id number]
== END 2020-03-02 12:48 | DRG 884 ==
LOC: ER 14:11 → ED HOLD 01-04 17:08 → ORTHO 4S 01-04 20:06 → PCU 3S 02-02 16:50 → ORTHO 4S 02-11 15:50 → SUR 3N 02-25 15:31
PROVIDERS: ADMIT Internal Medicine; ATTEND Internal Medicine
DX: F03.90 Unspecified dementia, unspecified severity, without behavioral disturbance, psychotic disturbance, mood disturbance, and anxiety (principal); N39.0 Urinary tract infection, site not specified; E44.1 Mild protein-calorie malnutrition; Z68.21 Body mass index [BMI] 21.0-21.9, adult; E78.00 Pure hypercholesterolemia, unspecified; E78.5 Hyperlipidemia, unspecified; E86.0 Dehydration; I50.9 Heart failure, unspecified; I11.0 Hypertensive heart disease with heart failure; I25.10 Atherosclerotic heart disease of native coronary artery without angina pectoris; I73.9 Peripheral vascular disease, unspecified; J44.9 Chronic obstructive pulmonary disease, unspecified; K21.9 Gastro-esophageal reflux disease without esophagitis; N28.9 Disorder of kidney and ureter, unspecified; Z80.9 Family history of malignant neoplasm, unspecified; Z82.49 Family history of ischemic heart disease and other diseases of the circulatory system; Z87.11 Personal history of peptic ulcer disease; Z87.891 Personal history of nicotine dependence; Z90.49 Acquired absence of other specified parts of digestive tract; Z90.710 Acquired absence of both cervix and uterus; Z98.61 Coronary angioplasty status; Z88.8 Allergy status to other drugs, medicaments and biological substances; Z88.0 Allergy status to penicillin
CPT/HCPCS: 36415; 70450; 71045; 80048; 80053; 80305; 80320; 81001; 84443; 84484; 85025; 87081; 93005; 96372; 99285; G0378; J1630; J2060; Q0163